=== PATIENT | female | born 1975 | race Asian ===

== ENCOUNTER 2024-03-15 16:11 | Emergency (ER) | payer OTHER, SELFPAY ==
--- NOTE | ~2024-03-15 | CT_ITS ---
CLINICAL HISTORY: low abd pain; h o and bilat oophorectomy CT abdomen and pelvis with contrast Comparison: None Findings: Mild motion artifact present. No consolidation or effusion. The liver is enlarged. The liver appears normal in contour. The gallbladder and solid organs are otherwise within normal limits. No hydronephrosis or hydroureter. There appears to be a vague area of decreased enhancement at the right kidney on axial image number 36 of series 3. No bowel obstruction, pneumoperitoneum, or pneumatosis. Pelvic contents unremarkable. No bladder wall thickening. Normal appendix. No acute fracture visualized. IMPRESSION: 1. Vague area of decreased enhancement identified of the right kidney as described above, which may be seen in the setting of pyelonephritis. No hydronephrosis, hydroureter, or perinephric fat stranding identified. Clinical correlation is advised. No other CT evidence for an acute inflammatory process identified within the abdomen or pelvis. 2. Hepatomegaly. This document has been electronically signed by: Eagle Moser MD on 03/16/2024 01:11:06
[2024-03-15 16:18] VITALS: BP 129/71; PULSE 91; RESP 20; TEMP 36.6; O2SAT 98; BMI 43.5
--- NOTE | 2024-03-15 16:19 | ED_ITS ---
HPI - General Adult General Chief complaint: Abdominal Pain Stated complaint: Pelvic pain, hyperglycemia Time Seen by Provider: 03/15/24 23:27 Source: patient, family, RN notes reviewed and pulp press tender (Upper Sorbian, video pulp press tender) Limitations: language barrier History of Present Illness HPI narrative: 48-year-old female, who reports a history of hypertension , asthma, presents for evaluation of a 4 day history of lower abdominal pain. Patient states symptoms began gradually, as pressure in the lower abdomen, in the center, suprapubic region. It has thin and progressively worsened. She reports a fullness in her ?uterus?. She denies any history of similar symptoms. She denies any vaginal prolapse. Has been able to urinate without difficulty. She has not had any bowel or bladder incontinence. No constipation. She has tried Tylenol without any relief. She denies any fevers chills nausea or vomiting. She denies any vaginal discharge bleeding or spotting. 11 years ago as well as bilateral oophorectomy secondary to recurrent ovarian cysts. Otherwise been feeling well. No history of kidney stones. Related Data Previous Rx's ?Medication ?Instructions ?Recorded phenazopyridine 100 mg tablet 100 mg PO TID #6 tabs 03/16/24 (Pyridium) Allergies Allergy/AdvReac Type Severity Reaction Status Date / Time No Known Allergies Allergy Verified 03/15/24 16:22 Review of Systems 2 Constitutional: Constitutional: Denies chills, Denies fever(s) and Denies headache(s) Eyes: Eyes: Denies change in vision and Denies other (No redness.) ENT: Denies headache(s), Denies nasal congestion, Denies nasal discharge, Denies neck pain and Denies sore throat Cardiovascular: Cardiovascular: Denies chest pain, Denies palpitations, Denies dyspnea, Denies dyspnea on exertion and Denies orthopnea Respiratory: Respiratory: Denies cough, Denies dyspnea and Denies dyspnea on exertion Gastrointestinal: Gastrointestinal: Reports abdominal pain, Denies melena, Denies hematochezia, Denies diarrhea, Denies nausea and Denies vomiting Genitourinary: Genitourinary: Denies dysuria and Denies urinary urgency Musculoskeletal: Musculoskeletal: Denies back pain, Denies muscle weakness, Denies neck pain and Denies numbness Integumentary/Breasts: Skin/Breast: Denies rash Neurologic: Denies headache(s), Denies focal weakness and Denies numbness Psychiatric: Psychiatric: Denies depression Endocrine: Endocrine: Denies palpitations [facility] Social History Social History Smoked in Last 30 Days: No Use of substances other than those prescribed or required for medical reasons: No Advance Directives: No Advance Directives Information Provided: Yes Do you have a plan to hurt others: No Plan Patient : No Physical Exam ED Vital Signs: Vital Signs - 24 hr 03/15/24 16:18 03/15/24 21:12 Temperature 97.8 F 97.9 F Pulse Rate 91 89 Respiratory Rate 20 18 Blood Pressure 129/71 133/60 Pulse Oximetry 98 97 Oxygen Delivery Method Room Air Room Air BMI result Body Mass Index 43.5 Const Orientation/consciousness: patient oriented x3 Resp Auscultation: clear to auscultation bilaterally Cardio Rate: regular rate Rhythm: regular rhythm GI Other: Abdomen is soft with diffuse tenderness in the lower abdomen. No peritoneal sign. Moderate suprapubic tenderness. No CVAT. Neuro General: patient oriented x3 Course Course Course Narrative: This is a rapid medical exam performed by Taras Madrigal NP: Additional HPI, ROS, PE not included below will be deferred to primary provider. Patient is a 48-year-old female presenting to the ED with daughter who reports patient has been having suprapubic abdominal pain for 4 days. States glucose levels have also been elevated. Referred from urgent care. Plan: Labs, UA Reevaluation(s) Reevaluation #1: 12:20 a.m., March 16, 2024. CT completed at this time, awaiting official resolved. Bladder noted to be distended. However after CT, patient was able to urinate on her own without difficulty. Check bladder scan for postvoid residual. 12:40 a.m., postvoid residual is 112. 1:35 a.m. patient is resting comfortably at this time. CT results reviewed, no acute process. Clinical correlation does not correlate with pyelonephritis. Patient may have cystitis but no obvious infection given urinalysis results. Reviewed all labs and imaging and discussed with the patient with Dr. Delcid. Patient will be provided with urology referral in trial of Pyridium. Reviewed all discharge instructions. Incidental finding of mild LFT elevation as well as hepatomegaly. Patient will follow up with PCP evaluation. Patient and her daughter expressed understanding of all discharge instructions and have no further questions at this time Medications Administered Discontinued Medications Generic Name Dose Route Start Last Admin Trade Name Ran PRN Reason Stop Dose Admin Sodium Chloride 1,000 mls @ 999 mls/hr 03/15/24 23:45 03/16/24 00:19 Ns IV 03/16/24 00:45 999 mls/hr .Q1H1M JOSY Administration Iohexol 85 ml 03/16/24 00:06 03/16/24 00:06 Iohexol 350 Mg/Ml 100 Ml Infus..Btl IV 03/16/24 00:07 85 ml ONCE ONE Administration Morphine Sulfate 4 mg 03/15/24 23:50 03/16/24 00:19 Morphine Sulfate 4 Mg/Ml Cartridge IVPUSH 03/15/24 23:51 4 mg ONCE ONE Administration Protocol Ondansetron HCl 4 mg 03/15/24 23:50 03/16/24 00:19 Ondansetron Hcl 4 Mg/2 Ml Vial IVPUSH 03/15/24 23:51 4 mg ONCE ONE Administration Medical Decision Making Medical Decision Making [facility] Narrative: 48-year-old female with a history of asthma, hypertension, diabetes, with a 4 day history of suprapubic abdominal pain. Check CT of the abdomen and pelvis. Consideration for ultrasound however since the patient has had bilateral oophorectomy we will start with CT. Glucose is elevated as well as mild elevation in LFTs. Beta quant is negative. Urinalysis with glucose but otherwise unremarkable. Differential Diagnosis Differential Diagnoses: The differential diagnosis associated with the presentation includes Bowel obstruction Intra-abdominal mass UTI Pyelonephritis next breath since Appendicitis Malignancy Admission/Observation Consideration of admission/observation: Escalation of care including admission/observation considered Consideration for admission if clinically warranted. Lab Data [facility] Lab Attestation statement: I reviewed the patient's lab results. 03/15/24 17:47 03/15/24 17:47 Labs: Lab Results 03/15/24 Range/Units 17:47 WBC 9.1 (4.8-10.8) X10*3/uL RBC 4.58 (4.20-5.50) X10*6/uL Hgb 11.4 L (12.0-16.0) g/dl Hct 36.3 L (37.0-47.0) % MCV 79.3 L (80.0-98.0) fL MCH 24.9 L (27.0-33.0) pg MCHC 31.4 (31.0-35.0) g/dl RDW 16.2 H (11.0-16.0) % Plt Count 227 (160-400) X10*3/uL MPV 11.1 (9.4-12.3) fL Immature Gran % (Auto) 0.3 (0.0-0.4) % Neut % (Auto) 52.2 (45-73) % Lymph % (Auto) 40.6 H (20-40) % [place] % (Auto) 4.9 (2-11) % Eos % (Auto) 1.3 (0-4) % Baso % (Auto) 0.7 (0-2) % Lymph # (Auto) 3.7 (1.2-4.9) X10*3/uL [place] # (Auto) 0.4 (0.1-1.2) X10*3/uL Eos # (Auto) 0.1 (0.0-0.4) X10*3/uL Baso # (Auto) 0.1 (0.0-0.2) X10*3/uL Abs Immat Gran (auto) 0.03 (0.00-0.03) X10*3/uL Absolute Neuts (auto) 4.7 (2.0-8.3) x10*3/uL Absolute Nucleated RBC 0.000 (0.0-0.012) X10*3/uL Nucleated RBC % (auto) 0.0 (0.0-0.2) /100WBC Sodium 139 (135-145) mmol/L Potassium 4.3 (3.3-5.1) mmol/L Chloride 107 (96-108) mmol/L Carbon Dioxide 28 (22-29) mmol/L Anion Gap 8 L (12-20) BUN 8 L (9-16) mg/dL Creatinine 0.81 (0.5-1.4) mg/dL Estim Creat Clear Calc 96.1 Estimated GFR > 60 Random Glucose 295 H (60-115) mg/dL Calcium 8.8 (8.4-10.2) mg/dL Total Bilirubin 0.8 (0.0-1.0) mg/dL AST 43 H (5-31) U/L ALT 77 H (0-31) U/L Alkaline Phosphatase 127 H (39-117) U/L Total Protein 7.6 (6.5-8.0) g/dL Albumin 4.1 (3.5-5.0) g/dL Beta HCG, Quant < 2 mIU/mL Urine Color Yellow Urine Appearance Clear Urine pH 6.5 (5.0-9.0) Ur Specific [place] 1.015 (1.005-1.025) Urine Protein Negative (Neg-Trace) mg/dL Urine Glucose (UA) 250 H (Negative) mg/dL Urine Ketones Negative (Negative) mg/dL Urine Blood Trace H (Negative) Urine Nitrite Negative (Negative) Ur Leukocyte Esterase Negative (Negative) Urine RBC 0-2 (0-2) /HPF Urine WBC 0-5 (0-5) /HPF Ur Squamous Epith Cells 3-5 (0-2) /HPF Urine Bacteria Trace (None Seen) Hyaline Casts 0-2 (0-2) /LPF Radiology Impression Discussion of test interpretation with radiology: I have reviewed the radiologist's reading. Radiologist Impression: [place] [id number] CT Scan Report Signed Patient: Scott Hartley MR#: [id number] : 1975 Acct:[id number] Age/Sex: 48 / F ADM Date: 03/15/24 Loc: .ED Attending Dr: Ordering Physician: Malik Toussaint Date of Service: 03/15/24 Procedure(s): CT abdomen pelvis w IV con Accession Number(s): [id number] cc: Physician,Unknown ; Malik Toussaint~ Report Number: [id number]: Total DLP = 1029.00 mGy-cm CLINICAL HISTORY: low abd pain; h o and bilat oophorectomy CT abdomen and pelvis with contrast Comparison: None Findings: Mild motion artifact present. No consolidation or effusion. The liver is enlarged. The liver appears normal in contour. The gallbladder and solid organs are otherwise within normal limits. No hydronephrosis or hydroureter. There appears to be a vague area of decreased enhancement at the right kidney on axial image number 36 of series 3. No bowel obstruction, pneumoperitoneum, or pneumatosis. Pelvic contents unremarkable. No bladder wall thickening. Normal appendix. No acute fracture visualized. IMPRESSION: 1. Vague area of decreased enhancement identified of the right kidney as described above, which may be seen in the setting of pyelonephritis. No hydronephrosis, hydroureter, or perinephric fat stranding identified. Clinical correlation is advised. No other CT evidence for an acute inflammatory process identified within the abdomen or pelvis. 2. Hepatomegaly. This document has been electronically signed by: Eagle Moser MD on 03/16/2024 01:11:06 Dictated By: Eagle Moser MD Signed By: <Electronically signed by Eagle Moser MD in OV> 03/16/24111 DD/ 0 TD/TT: 03/16/24110 Tester Equipment: Prescription Management I considered prescription management with: Pain Medication Chronic Conditions Patient?s care impacted by: Diabetes and Hypertension Discharge Plan Discharge Clinical Impression: Cystitis, Suprapubic fullness Abdominal pain Qualifiers: Abdominal location: lower abdomen, unspecified Qualified Code(s): R10.30 - Lower abdominal pain, unspecified Patient Disposition: Home, Self-Care Instructions: Abdominal Pain (ED), Interstitial Cystitis (ED) Additional Instructions: Pyridium as instructed to help with discomfort. This will turn your urine orange. Ibuprofen as directed for pain, available over the counter. Some of your liver tests were mildly elevated. These should be rechecked by your primary care provider. Avoid medications such as Tylenol or containing acetaminophen. Follow up with Urology referral, call Monday morning to schedule appointment. Follow-up with your primary care provider. Call this week to schedule a follow- up appointment. Return to the emergency department if you have any worsening of symptoms, or any concerns. Get well soon! Prescriptions: New phenazopyridine [Pyridium] 100 mg tablet 100 mg PO TID Qty: 6 0RF Referrals: Norma Solorzano MD [Physician] - 1 week (cystitis) Print Language: Upper Sorbian
[2024-03-15 17:52] LABS: MANUAL DIFF FLAG NO
[2024-03-15 17:54] LABS: Basophils Absolute Auto 0.1 X10*3/uL (0.0-0.2); Basophils Percent Auto 0.7 % (0-2); Eosinophils Absolute Auto 0.1 X10*3/uL (0.0-0.4); Eosinophils Percent Auto 1.3 % (0-4); Hematocrit 36.3 % (37.0-47.0); Hemoglobin 11.4 g/dl (12.0-16.0); Imm Gran Abs Auto 0.03 X10*3/uL (0.00-0.03); Imm Gran Pct Auto 0.3 % (0.0-0.4); Lymphocytes Absolute Auto 3.7 X10*3/uL (1.2-4.9); Lymphocytes Percent Auto 40.6 % (20-40); Mean Corpuscular HGB Conc 31.4 g/dl (31.0-35.0); Mean Corpuscular Hemoglobin 24.9 pg (27.0-33.0); Mean Corpuscular Volume 79.3 fL (80.0-98.0); Mean Platelet Volume 11.1 fL (9.4-12.3); Monocytes Absolute Auto 0.4 X10*3/uL (0.1-1.2); Monocytes Percent Auto 4.9 % (2-11); Neutrophils Absolute Auto 4.7 x10*3/uL (2.0-8.3); Neutrophils Percent Auto 52.2 % (45-73); Platelet Count 227 X10*3/uL (160-400); Red Blood Count 4.58 X10*6/uL (4.20-5.50); Red Cell Distribution Width 16.2 % (11.0-16.0); White Blood Count 9.1 X10*3/uL (4.8-10.8)
[2024-03-15 18:01] LABS: Appearance Urine Clear; Color Urine Yellow; Glucose Urine UA 250 mg/dL (Negative); Leukocyte Esterase Urine Negative (Negative); Nitrite Urine Negative (Negative); PH 6.5 (5.0-9.0); Specific Gravity - Urine 1.015 (1.005-1.025); UMIC TRIGGER UACC YES; Urine Blood Trace (Negative); Urine Ketones Negative (Negative); Urine Protein Negative (Neg-Trace)
[2024-03-15 18:06] LABS: Bacteria Urine Trace (None Seen); Hyaline Casts Urine 0-2 /LPF (0-2); RBC Urine 0-2 /HPF (0-2); WBC Urine 0-5 /HPF (0-5)
[2024-03-15 18:22] LABS: Alanine Aminotransferase 77 U/L (0-31); Albumin Level 4.1 g/dL (3.5-5.0); Alkaline Phosphatase 127 U/L (39-117); Anion Gap 8 (12-20); Aspartate Amino Transferase 43 U/L (5-31); Bilirubin Total 0.8 mg/dL (0.0-1.0); Blood Urea Nitrogen 8 mg/dL (9-16); Calcium 8.8 mg/dL (8.4-10.2); Carbon Dioxide 28 mmol/L (22-29); Chloride 107 mmol/L (96-108); Creatinine Clr Calc Pharmacy 96.1; Estimated Glomerular Filt Rate > 60; Glucose Random 295 mg/dL (60-115); Potassium 4.3 mmol/L (3.3-5.1); Sodium 139 mmol/L (135-145); Total Protein 7.6 g/dL (6.5-8.0)
[2024-03-15 18:26] LABS: HCG Quantitative < 2 mIU/mL
[2024-03-15 21:12] VITALS: BP 133/60; PULSE 89; RESP 18; TEMP 36.6; O2SAT 97
[2024-03-16] MEDS: iohexoL 350 MG/ML 100 ML INFUS..BTL 85 ML IV (00:06)
[2024-03-16] MEDS: Morphine Sulfate 4 MG/ML CARTRIDGE IVPUSH (00:19)
[2024-03-16] MEDS: ondansetron HCL 4 MG/2 ML VIAL IVPUSH (00:19)
[2024-03-16] MEDS: 0.9 % Sodium Chloride 1,000 ML 999 ML IV (00:19)
[2024-03-16 02:02] VITALS: BP 121/71; PULSE 92; RESP 18; TEMP 36.4; O2SAT 97
[2024-03-16] MEDS: Phenazopyridine HCL 200 MG TABLET PO (02:04)
[2024-03-16 02:12] VITALS: BP 121/71; PULSE 92; RESP 18; TEMP 36.4; O2SAT 97
== END 2024-03-16 02:23 | disposition home or self-care (01) ==
PROVIDERS: Registered Nurse Emergency; Emergency Provider Emergency Medicine
DX: R10.30 Lower abdominal pain, unspecified (principal); E11.9 Type 2 diabetes mellitus without complications; I10 Essential (primary) hypertension
CPT/HCPCS: 36415; 74177; 80053; 81001; 84702; 85025; 96361; 96374; 96375; 99284; J2270; J2405; Q9967

== ENCOUNTER → 2024-03-15 23:43 | Outpatient (BNV) | payer OTHER, SELFPAY | PROVIDERS: Emergency Provider Emergency Medicine; Visit Provider Radiology Diagnostic Radiology | DX: R10.2 Pelvic and perineal pain (principal) | CPT/HCPCS: 74177 ==

== ENCOUNTER 2024-05-15 11:05 | Outpatient (AMB) | payer OTHER, SELFPAY ==
--- NOTE | 2024-05-15 11:11 | A.OFFVIS_ITS ---
Intake Visit Reasons: Cystitis Intake Note: New Patient presents for initial visit for cystitis Urology Medications: none Blood Thinner: none PVR: 0ml's High Lift Operator Required: Yes High Lift Operator Services: High Lift Operator Present High Lift Operator Name: [id number] Accompanied by: Unknown Allergies No Known Allergies Allergy (Verified 05/15/24 11:48) Medication List - Last Reconciled 05/15/24 by LORENZO Bell atorvastatin 10 mg PO DAILY dulaglutide (Trulicity) mg subcut ibuprofen 600 mg PO Q8H PRN insulin glargine (Lantus Solostar U-100 Insulin) units subcut lisinopril 10 mg PO DAILY metformin ER 1,000 mg PO BID phenazopyridine (Pyridium) 100 mg PO TID trazodone 100 mg PO BEDTIME HPI Comments Details: Scott is a very pleasant 48-year-old Bengali speaking patient. She has a past medical history of hyperlipidemia and diabetes. She presents to the office today as a new patient for lower abdominal pain she had been experiencing. In discussion with the patient today she reports having seeked emergency room care earlier this year for lower abdominal pain fullness to uterus she had been experiencing at which time recommendations were made for urology referral for further assessment evaluation. In review of patient's chart it appears CT of the abdomen was ordered and performed. These results were communicated and reviewed with the patient today. 04/06 vague area of decreased enhancement identified of the right kidney which may be seen in the setting of pyeloneph ritis. No hydronephrosis, hydroureter, or perinephric fat stranding identified. Clinical correlation is advised. No other CT evidence of an acute inflammatory process identified within the abdomen or pelvis. Patient reports pain she had been experiencing has since subsided. In office urinalysis results reviewed with the patient today trace microscopic hematuria noted otherwise within normal li mits. When asked she denies any previous history of nicotine dependence and or workplace chemical exposure. PVR 0 mL. She denies urinary urgency, urinary frequency, incontinence, nocturia, hematuria, dysuria, foul smelling urine, changes to urinary stream, flank pain, fever, and or chills. She is happy with her current voiding parameters. We discussed at length potential causes of microscopic hematuria as well as lower abdominal pain she had been experiencing. We discussed obtaining repeat imaging for surveillance monitoring. We also discussed following up with oil well service operator helper as patient feels symptoms she had been feeling were more related to oil well service operator helper. She otherwise offers no other issues or concerns at this time. Review of Systems Const All systems reviewed & are unremarkable except as noted in HPI and below Physical Exam Const General: cooperative, healthy appearing, comfortable, no acute distress, well developed, alert and awake Nutritional Appearance: overweight Orientation/consciousness: patient oriented x3 Limitations: ambulation with cane HEENT Head: Yes normal to inspection, Yes normocephalic and Yes atraumatic Ears: hearing grossly normal bilaterally Eyes General: appearance normal, both eyes and all related structures Neck Neck: Yes normal visual inspection and Yes trachea midline Chest Chest palpation & inspection: normal inspection of the chest Resp Effort & Inspection: normal respiratory effort and able to speak in complete sentences Cardio Rate: regular rate GI Inspection: Yes normal to inspection General: Yes no CVA tenderness Back/Spine/Pelvis Back: no CVA tenderness Skin General skin exam: no rashes or lesions noted Neuro General: patient oriented x3 Extrem General: Yes normal to inspection Psych Appearance: grossly normal and well kempt Mental Status: mental status grossly normal Speech and movement: Normal speech and movement present and Clear speech present Affect: normal affect Attitude: cooperative Thought process: Normal thought process present Thought content: Normal thought content present Insight: Fair insight present (Psych) Judgement: Fair judgement present (Psych) Office Procedures Post Void Residual Post Residual Void Post Void Residual (PVR): 0 30354-[id number] Void Residual by ultrasound Results AMB Urinalysis, Automated UA Leukoctes 0 Irma/uL Last Edit by Disha Serrnao on 05/15/24 12:01 UA Nitrite Last Edit by Disha Serrano on 05/15/24 12:01 UA Urobilinogen 0.2 mg/dL Last Edit by Disha Serrano on 05/15/24 12:01 UA Protein 30 mg/dL Last Edit by Disha Serrano on 05/15/24 12:01 UA pH 6.0 Last Edit by Disha Serrano on 05/15/24 12:01 UA Blood 10 Stepan/uL Last Edit by Disha Serrano on 05/15/24 12:01 UA Specific [place] 1.015 Last Edit by Disha Serrano on 05/15/24 12:01 UA Ketone Last Edit by Disha Serrano on 05/15/24 12:01 UA Bilirubin 0 mg/dL Last Edit by Disha Serrano on 05/15/24 12:01 UA Glucose 0 mg/dL Last Edit by Disha Serrano on 05/15/24 12:01 Results Reviewed Results Reviewed: Laboratory Last Values Urine pH (Auto) 6.0 05/15/24 11:59 Specific [place] (Auto) 1.015 05/15/24 11:59 Urine Protein (Auto) 30 mg/dL 05/15/24 11:59 Glucose (UA)(Auto) 0 mg/dL 05/15/24 11:59 Urine Blood (Auto) 10 Stepan/uL 05/15/24 11:59 Urine Bilirubin (Auto) 0 mg/dL 05/15/24 11:59 Urine Urobilinogen (Auto) 0.2 mg/dL 05/15/24 11:59 Leukocyte Esterase (Auto) 0 Irma/uL 05/15/24 11:59 Date of Service: 03/15/24 CT abdomen and pelvis with contrast Comparison: None Findings: Mild motion artifact present. No consolidation or effusion. The liver is enlarged. The liver appears normal in contour. The gallbladder and solid organs are otherwise within normal limits. No hydronephrosis or hydroureter. There appears to be a vague area of decreased enhancement at the right kidney on axial image number 36 of series 3. No bowel obstruction, pneumoperitoneum, or pneumatosis. Pelvic contents unremarkable. No bladder wall thickening. Normal appendix. No acute fracture visualized. IMPRESSION: 1. Vague area of decreased enhancement identified of the right kidney as described above, which may be seen in the setting of pyelonephritis. No hydronephrosis, hydroureter, or perinephric fat stranding identified. Clinical correlation is advised. No other CT evidence for an acute inflammatory process identified within the abdomen or pelvis. 2. Hepatomegaly. Assessment & Plan Assessment & Plan (1) Microscopic hematuria: Code(s): R31.29 - Other microscopic hematuria Category: Medical (2) Lower abdominal pain: Code(s): R10.30 - Lower abdominal pain, unspecified Category: Medical Plan In office urinalysis results reviewed with the patient today; as noted above. PVR [address] results reviewed with the patient today; as noted above. We discussed potential causes of microscopic hematuria as well as further workup in risks and benefits of these interventions. Patient currently denies any bothersome urinary issues or concerns. She reports be happy with current voiding parameters. We discussed importance of hydration relation to overall health and well-being. We discussed importance of management and diabetes for improvement in overall health and well-being. Will obtain retroperitoneal ultrasound Follow-up in 3 months with imaging to be completed prior PVR at next office visit or sooner with any issues, concerns, and or questions. Orders: Orders AMB Urinalysis Automated Today Z13.9 - Encounter for screening, unspecified AMB Post Void Residual by ultrasound Today N39.41 - Urge incontinence Urine Cytology Today Z13.9 - Encounter for screening, unspecified US retroperitoneal comp 2 Months R31.29 - Other microscopic hematuria Patient Instructions: The patient had an opportunity to ask questions regarding the treatment plan. All questions were answered. Physical exam, labs, and imaging were discussed and reviewed in detail. As well as risks, benefits, and discussion of treatment choices. No major barriers to understanding were identified. The patient expressed understanding and agreement with the above treatment plan. The patient was made aware they should contact our office by phone for worsening of their current condition, the appearance of new symptoms, or with any questions or concerns. Compliance is encouraged with any medications and follow up testing that is ordered. It is a privilege to be allowed the opportunity to participate in? your urological care.? Again, if you have any questions or concerns If you have any questions or concerns please do not hesitate to contact me. The office is [phone]. This note is constructed using voice recognition software. While every effort has been made to ensure accuracy cut in station operator errors may have been included. Yours sincerely, LORENZO Bell Coding Level of Care Code New Pt Level 4 (40340) Diagnoses Microscopic hematuria R31.29 Lower abdominal pain R10.30 CPT Codes Post Residual Void - PVR CPT Code: 23158-Ywev Void Residual by ultrasound ([id number]) Time Spent (min) 35
--- OUTSIDE RECORDS SUMMARY | 2024-05-15 13:23 | XMS_ITS | Continuity of Care Document ---
Author Organization [facility] Address [address] [place] [address]- Care Team Providers Care Iron Pourer Name Role Phone Carlton GANDHI, Tri Burgess Primary Care Physician [place] [facility] [place] - 04/26/24 [facility] [address] [place] [address]- Encounter Type: Triage Allergies, Adverse Reactions, Alerts Substance Criticality Severity Reaction Reaction Severity Status Jardiance recurrent vaginal candidiasis Active Immunizations Given and Recorded Vaccine Date Status Refusal Reason Measles/Mumps/Rubella Virus Vaccine 1 06/05/15 Rec orded Measles/Mumps/Rubella Virus Vaccine 2 09/24/14 Rec orded Hepatitis B Vaccine (old term) 3 06/05/15 Recorded Hepatitis B Vaccine (old term) 4 12/10/14 Recorded Hepatitis B Vaccine (old term) 5 10/27/14 Recorded tetanus/diphtheria/pertussis, acel(Tdap) 6 10/27/14 Recorded tetanus/diphtheria/pertussis, acel(Tdap) 7 09/24/14 Recorded 1Result Comment: Unit: Unknown Route: Subcutaneous Road Test Examiner: Merck and [employer]. 2Result Comment: Unit: Unknown Route: Subcutaneous Road Test Examiner: Merck and [employer]. 3Result Comment: Unit: Unknown Route: Intramuscular Road Test Examiner: Merck, Sharp, Dohme 4Result Comment: Unit: Unknown Route: Intramuscular Road Test Examiner: Merck and Co. 5Result Comment: Unit: Unknown Route: Intramuscular Road Test Examiner: GlaxoSmithKline 6Result Comment: Unit: Unknown Route: Intramuscular Road Test Examiner: Sanofi Pasteur 7Result Comment: Unit: Unknown Route: Intramuscular Road Test Examiner: [employer] Medications Advair Diskus 500 mcg-50 mcg inhalation powder 1, inhalation, Inhalation, 2 times a day, Rinse mouth and throat after use. use for prevention of shortness of breath., # 3 each, Refills 1, Tot. Refills 1, Maintenance, 01/06/23 11:29:00 AM EDT, Inhaler, Route to Pharmacy Electronically, [id number], [id number], Label in [place], 158, cm, 01/06/23 10:37:00 EDT, Height, 108, kg, 09/16/22 17:43:00 EDT, Dry Weight Start Date: 01/06/23 Stop Date: 07/05/23 Status: Ordered Quantity: 3.0 Unit: each Repeat number: 2 Indication: Unspecified asthma, uncomplicated atorvastatin 10 mg oral tablet 1 tablet = 10 mg, By Mouth, Daily, Take for cholesterol and diabetes management., # 90 tablet, 0 Refills, Maintenance, 11/07/23 3:12:00 PM EDT, [facility], Label in [place]., 158, cm, 09/11/23 15:00:00 EDT, Height, 108, kg, 09/16/22 17:43:00 EDT, Dry Weight Start Date: 11/07/23 Stop Date: 02/05/24 Status: Ordered Quantity: 90.0 Unit: tablet Repeat number: 1 Indication: Type 2 diabetes mellitus without complications BD STEPHEN 2 GEN PEN NDL 32G 4MM BD STEPHEN 2 GEN PEN NDL 32G 4MM, See Instructions, # 90 Unknown, 1 Refills, Maintenance, 1 X DAILY USE DIRECTED FOR TYPE 2 DIABETES MELLITUS, 04/15/24 10:39:00 AM EST, 158, cm, 03/20/24 13:07:00 EST, Height, 110, kg, 03/14/24 17:34:00 EST, Dry Weight Start Date: 04/15/24 Status: Ordered Quantity: 90.0 Unit: Unknown Repeat number: 1 capsaicin 0.025% topical lotion 1 application, Topically, 4 times a day, Apply to painful areas up to four times per day. Avoid contact with face and eyes., # 60 mL, 2 Refills, Maintenance, 05/04/22 12:47:00 PM EST, Lotion, [facility], Label in [place]., 155, cm, 05/04/22 10:40:00 EST, Height, 50, kg, 03/20/22 1:24:00 EST, Dry Weight Start Date: 05/04/22 Status: Ordered Quantity: 60.0 Unit: mL Repeat number: 3 Indication: Pain in unspecified joint clotrimazole 1% topical cream 1 application, Topically, 2 times a day, # 100 Gm, 11 Refills, Maintenance, 09/11/23 3:39:00 PM EDT, Cream, [facility], Partial fill upon patient request if the prescription is for a schedule II opioid drug., 1 application Topically 2 times a day, 158, cm, 09/11/23 15:00:00 EDT, Height, 108, kg, 09/16/22 17:43:00 EDT, Dry Weight Start Date: 09/11/23 Status: Ordered Quantity: 100.0 Unit: g Repeat number: 12 diclofenac 1% topical gel = 2 Gm, Topically, 4 times a day, PRN NEEDED FOR PAIN, # 300 Gm, 1 Refills, Maintenance, 03/15/23 6:47:00 AM EST, [id number], 30, APPLY 2 GRAMS 4 TIMES A DAY NEEDED FOR PAIN, 158, cm, 01/06/23 10:37:00 EDT, Height, 108, kg, 09/16/22 17:43:00 EDT, Dry Weight Start Date: 03/15/23 Status: Ordered Quantity: 300.0 Unit: g Repeat number: 1 diclofenac potassium 50 mg oral tablet 1 tablet = 50 mg, By Mouth, 2 times a day, PRN for pain, for 30 days, Please disregard prior scriptfor Ibuprofen. Diclofenac to replace Ibuprofen, # 60 tablet, 5 Refills, Acute 10/13/24 4:29:00 PM EDT, 04/16/24 4:29:00 PM EST, Tablet, [facility], Partial fill upon patient request if the prescription is for a schedule II opioid drug., 158, cm, 04/16/24 15:39:00 EST, Height, 110, kg, 03/14/24 17:34:00 EST, Dry Weight Start Date: 04/16/24 Stop Date: 10/13/24 Status: Ordered Quantity: 60.0 Unit: tablet Repeat number: 6 duloxetine 20 mg oral enteric coated capsule 1 capsule = 20 mg, By Mouth, 2 times a day, Take for management of pain and depression. Do not crush or chew., # 60 capsule, 5 Refills, Maintenance, 09/11/23 3:40:00 PM EDT, EC Capsule, [facility], Label in [place]., 158, cm, 09/11/23 15:00:00 EDT, Height, 108, kg, 09/16/22 17:43:00 EDT, Dry Weight Start Date: 09/11/23 Stop Date: 03/09/24 Status: Ordered Quantity: 60.0 Unit: capsule Repeat number: 6 Indication: Encounter for general adult medical examination without abnormal findings famotidine 40 mg oral tablet 1 tablet, By Mouth, 2 times a day, # 180 tablet, 0 Refills, Maintenance, 12/12/23 11:03:00 AM EDT, [facility], 158, cm, 12/07/23 14:22:00 EDT, Height, 108, kg, 09/16/22 17:43:00 EDT, Dry Weight Start Date: 12/12/23 Status: Ordered Quantity: 180.0 Unit: tablet Repeat number: 1 fluconazole 150 mg oral tablet 1 tablet = 150 mg, By Mouth, Once, epeat dose if still having symptoms in 72 hours, # 2 tablet, 0 Refills, Soft Stop, 04/18/24 1:57:00 PM EST, Tablet, [facility], Partial fill upon patient request if the prescription is for a schedule II opioid drug., 158, cm, 04/18/24 13:42:00 EST, Height, 110, kg, 03/14/24 17:34:00 EST, Dry Weight Start Date: 04/18/24 Status: Ordered Quantity: 2.0 Unit: tablet Repeat number: 1 FreeStyle Hazel 2 Sensors See Instructions, # 6 each, Refills 1, Tot. Refills 1, Maintenance, ICD10: E11.9 To use to monitor blood sugars at least twice daily, change every 14 days, 11/09/22 7:28:00 AM EDT, Supply, 158, cm, 09/16/22 17:43:00 EDT, Height, 108, kg, 09/16/22 17:43:00 EDT, Dry Weight Start Date: 11/09/22 Status: Ordered Quantity: 6.0 Unit: each Repeat number: 2 Freestyle Lite Lancets See Instructions, # 100 each, Refills 5, Tot. Refills 5, Maintenance, Use as directed one time daily for monitoring of blood sugar. Use as needed for symptoms hypoglycemia and hyperglycemia Dx: E11.9duration: Lifetime, 04/16/24 4:22:00 PM EST, Supply, 158, cm, 04/16/24 15:39:00 EST, Height, 110, kg,03/14/24 17:34:00 EST, Dry Weight Start Date: 04/16/24 Status: Ordered Quantity: 100.0 Unit: each Repeat number: 6 Freestyle Lite Test Strips See Instructions, # 100 each, Refills 5, Tot. Refills 5, Maintenance, Use as directed one time daily for monitoring of blood sugar. Use as needed for symptoms hypoglycemia and hyperglycemia Dx: E11.9Duration: Lifetime, 04/16/24 4:22:00 PM EST, Supply, 158, cm, 04/16/24 15:39:00 EST, Height, 110, kg,03/14/24 17:34:00 EST, Dry Weight Start Date: 04/16/24 Status: Ordered Quantity: 100.0 Unit: each Repeat number: 6 gabapentin 300 mg oral capsule 300 mg, 1, capsule, By Mouth, 3 times a day, # 270 capsule, Refills 3, Tot. Refills 3, Maintenance,09/11/23 3:36:00 PM EDT, Route to Pharmacy Electronically, [facility]acy #1972, Partial fill upon patient request if the prescription is for a schedule II opioid drug., 158, cm, 09/11/23 15:00:00 EDT, Height, 108, kg, 09/16/22 17:43:00 EDT, Dry Weight Start Date: 09/11/23 Status: Ordered Quantity: 270.0 Unit: capsule Repeat number: 4 Lantus Solostar Pen 100 units/mL subcutaneous solution See Instructions, INJECT 35 UNITS SUBCUTANEOUSLY DAILY AT BEDTIME,X30 DAYS, # 15 Unknown, 11 Refills, Maintenance, 04/08/24 9:33:00 AM EST, [facility] ST[id number], 158, cm, 03/20/24 13:07:00 EST, Height, 110, kg, 03/14/24 17:34:00 EST, Dry Weight Start Date: 04/08/24 Status: Ordered Quantity: 15.0 Unit: Unknown Repeat number: 1 lisinopril 10 mg oral tablet 10 mg, 1, tablet, By Mouth, Daily, Take for management of blood pressure., # 90 tablet, Refills 3, Tot. Refills 3, Maintenance, 04/04/23 2:20:00 PM EST, Route to Pharmacy Electronically, [facility]/pharmacy #1972, Label in Kazakh., 158, cm, 04/04/23 13:58:00 EST, Height, 108, kg, 09/16/22 17:43:00 EDT, DryWeight Start Date: 04/04/23 Stop Date: 03/29/24 Status: Ordered Quantity: 90.0 Unit: tablet Repeat number: 4 MetFORMIN (Eqv-Glucophage XR) 500 mg oral tablet, extended release 2 tablet, By Mouth, 2 times a day, # 360 tablet, 2 Refills, Maintenance, 02/19/24 2:58:00 PM EST, [facility] STORE [id number], 154, cm, 12/22/23 14:25:00 EDT, Height, 108, kg, 12/14/23 15:18:00 EDT, Dry Weight Start Date: 02/19/24 Status: Ordered Quantity: 360.0 Unit: tablet Repeat number: 1 mupirocin 2% topical ointment 22 Gm, APPLY TO THE AREA OF THE RASH ON YOUR BREAST., 0 Refills, 05/04/22 11:21:00 AM EST, Partial fill upon patient request if the prescription is for a schedule II opioid drug. Start Date: 05/04/22 Status: Ordered Repeat number: 1 Pen [place], 31 G x 5 mm BD Ultra Fine III See Instructions, # 100 each, Refills 5, Tot. Refills 5, Maintenance, Use as directed to adminiser insulin dx. e11.9 duration:lifetime, 03/30/23 1:39:00 PM EST, Supply, 158, cm, 01/06/23 10:37:00 EDT,Height, 108, kg, 09/16/22 17:43:00 EDT, Dry Weight Start Date: 03/30/23 Status: Ordered Quantity: 100.0 Unit: each Repeat number: 6 Pen [place], 32 G x 4 mm BD Ultra Fine III See instructions, # 200 each, Refills 5, Tot. Refills 5, Maintenance, 1 x daily use as directed forType 2 Diabetes Mellitus, 04/16/24 4:23:00 PM EST, Supply, 158, cm, 04/16/24 15:39:00 EST, Height, 110, kg, 03/14/24 17:34:00 EST, Dry Weight Start Date: 04/16/24 Stop Date: 10/13/24 Status: Ordered Quantity: 200.0 Unit: each Repeat number: 6 sucralfate 1 gm oral tablet 1 Gm, 1, tablet, By Mouth, 4 times a day, on an empty stomach vietnamese label please, # 120 tablet, Refills 1, Tot. Refills 1, Maintenance, 09/11/23 4:06:00 PM EDT, Route to Pharmacy Electronically, [facility]/pharmacy #1972, Partial fill upon patient request if the prescription is for a schedule II opioid drug., 158, cm, 09/11/23 15:00:00 EDT, Height, 108, kg, 09/16/22 17:43:00 EDT, Dry Weight Start Date: 09/11/23 Status: Ordered Quantity: 120.0 Unit: tablet Repeat number: 2 traZODone 100 mg oral tablet 1, tablet, By Mouth, Daily at bedtime, PRN, SLEEP., # 90 tablet, Refills 1, Maintenance, NEEDED,02/19/24 2:58:00 PM EST, Route to Pharmacy Electronically, [facility] STORE [id number], 154, cm, 12/22/23 14:25:00 EDT, Height, 108, kg, 12/14/23 15:18:00 EDT, Dry Weight Start Date: 02/19/24 Status: Ordered Quantity: 90.0 Unit: tablet Repeat number: 1 Trulicity Pen 1.5 mg/0.5 mL subcutaneous solution = 1.5 mg, Subcutaneous Injection, Every week, rotate injection sites, # 1 each, 5 Refills, Maintenance, 12/22/23 2:52:00 PM EDT, Solution, [facility]/pharmacy #1972, Partial fill upon patient request if theprescription is for a schedule II opioid drug., 154, cm, 12/22/23 14:25:00 EDT, Height, 108, kg, 12/14/23 15:18:00 EDT, Dry Weight Start Date: 12/22/23 Stop Date: 06/07/24 Status: Ordered Quantity: 1.0 Unit: each Repeat number: 6 Tylenol Extra Strength 500 mg oral tablet 1 tablet = 500 mg, By Mouth, Every 4 hours, PRN for pain, # 60 tablet, 0 Refills, Maintenance, 11/16/22 11:55:00 AM EDT, Tablet, [facility], Partial fill upon patient request if the prescription is for a schedule II opioid drug., 158, cm, 11/16/22 11:38:00 EDT, Height, 108, kg, 09/16/22 17:43:00 EDT, Dry Weight Start Date: 11/16/22 Status: Ordered Quantity: 60.0 Unit: tablet Repeat number: 1 Ventolin HFA 108 mcg/inh inhalation aerosol with adapter 2 puffs, Inhalation, Every 6 hours, PRN NEEDED, WHEEZING/SHORTNESS OF BREATH., # 18 each, 5 Refills, Maintenance, 05/02/23 7:12:00 AM EST, [id number], 158, cm, 04/04/23 13:58:00 EST, Height, 108, kg, 09/16/22 17:43:00 EDT, Dry Weight Start Date: 05/02/23 Stop Date: 06/01/23 Status: Ordered Quantity: 18.0 Unit: each Repeat number: 1 Zepbound Pen 5 mg/0.5 mL subcutaneous solution = 5 mg, Subcutaneous Injection, Every week, rotate injection sites, # 1 kit, 3 Refills, Maintenance, 04/16/24 4:19:00 PM EST, Solution, [facility], Partial fill upon patient request if the prescription is for a schedule II opioid drug., 158, cm, 04/16/24 15:39:00 EST, Height, 110, kg, 03/14/24 17:34:00 EST, Dry Weight Start Date: 04/16/24 Stop Date: 08/06/24 Status: Ordered Quantity: 1.0 Unit: kit Repeat number: 4 Problem List Condition Confirmation Course Effective Dates Status H ealth Status Informant Asthma Confirmed Active Carpal tunnel syndrome of right wrist Confirmed 09/24/14 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 Monitored by the [facility] Nurse. 4CT chest 2023 [facility] Social History Social History Type Response Smoking Status Type: Cigarettes;[place] smoker entered on: 01/27/15 Sex Sex Representation Female (finding) Patient Care team information Care Team Personnel Name: Tri Vincent MD Position: [facility] Physician - Primary Care Member Role: PCP Address: [address] [place] [address]- Telecom: Care Team Related Persons Name: MEGAN MINER Insurance Providers Guarantor name: LORENZO ESPINAL Health Plan Information #: 1 Payer: [employer] Member Number: NA Policy Number: NA Group Number: NA
--- OUTSIDE RECORDS SUMMARY | 2024-05-15 13:23 | XMS_ITS | Continuity of Care Document ---
Author Organization [facility] Address [address] [place] [address]- Care Team Providers Care Service Planner Name Role Phone Carlton GANDHI, Tri Burgess Primary Care Physician Encounter [facility] Date(s): 03/22/24 - 04/21/24 [facility] [address] [place] [address]- Encounter Type: Triage Allergies, Adverse Reactions, Alerts [...] Recorded 1Result Comment: Unit: Unknown Route: Subcutaneous Metal Extrusion Supervisor: [employer] 2Result Comment: Unit: Unknown Route: Subcutaneous Metal Extrusion Supervisor: [employer] 3Result Comment: Unit: Unknown Route: Intramuscular Metal Extrusion Supervisor: Merck, Sharp, Dohme 4Result Comment: Unit: Unknown Route: Intramuscular Metal Extrusion Supervisor: [employer]. 5Result Comment: Unit: Unknown Route: Intramuscular Metal Extrusion Supervisor: GlaxoSmithKline 6Result Comment: Unit: Unknown Route: Intramuscular Metal Extrusion Supervisor: Sanofi Pasteur 7Result Comment: Unit: Unknown Route: Intramuscular Metal Extrusion Supervisor: GlaxoSmithKline Medications Advair Diskus 500 mcg-50 mcg inhalation powder 1, inhalation, Inhalation, 2 times a day, Rinse mouth and throat after use. use for prevention of shortness of breath., # 3 each, Refills 1, Tot. Refills 1, Maintenance, 01/06/23 11:29:00 AM EDT, Inhaler, Route to Pharmacy Electronically, [id number], [facility], Label in Spanish, 158, cm, 01/06/23 10:37:00 EDT, Height, 108, [...] 3:12:00 PM EDT, [facility], Label in Spanish., 158, cm, 09/11/23 15:00:00 EDT, Height, 108, [...] PM EST, Lotion, [facility], Label in Spanish., 155, cm, 05/04/22 10:40:00 EST, Height, 50, [...] 1 Refills, Maintenance, 03/15/23 6:47:00 AM EST, [id number], 30, APPLY 2 GRAMS 4 TIMES A [...] EDT, EC Capsule, [facility], Label in Spanish., 158, cm, 09/11/23 15:00:00 EDT, Height, 108, [...] 3:36:00 PM EDT, Route to Pharmacy Electronically, [facility]/pharmacy #1972, Partial fill upon patient request if [...] 11 Refills, Maintenance, 04/08/24 9:33:00 AM EST, [facility] ST[facility] [id number], 158, cm, 03/20/24 13:07:00 EST, Height, 110, kg, 03/14/24 17:34:00 EST, Dry Weight Start Date: 04/08/24 Status: Ordered Quantity: 15.0 Unit: Unknown Repeat number: 1 lisinopril 10 mg oral tablet 10 mg, 1, tablet, By Mouth, Daily, Take for management of blood pressure., # 90 tablet, Refills 3, Tot. Refills 3, Maintenance, 04/04/23 2:20:00 PM EST, Route to Pharmacy Electronically, [facility]/pharmacy #1972, Label in Spanish., 158, cm, 04/04/23 13:58:00 EST, Height, 108, kg, 09/16/22 17:43:00 EDT, DryWeight Start Date: 04/04/23 Stop Date: 03/29/24 Status: Ordered Quantity: 90.0 Unit: tablet Repeat number: 4 MetFORMIN (Eqv-Glucophage XR) 500 mg oral tablet, extended release 2 tablet, By Mouth, 2 times a day, # 360 tablet, 2 Refills, Maintenance, 02/19/24 2:58:00 PM EST, [id number], 154, cm, 12/22/23 14:25:00 EDT, Height, 108, [...] 05/04/22 Status: Ordered Repeat number: 1 Pen [place], 31 G x 5 mm BD Ultra Fine III See Instructions, # 100 each, Refills 5, Tot. Refills 5, Maintenance, Use as directed to adminiser insulin dx. e11.9 duration:lifetime, 03/30/23 1:39:00 PM EST, Supply, 158, cm, 01/06/23 10:37:00 EDT,Height, 108, kg, 09/16/22 17:43:00 EDT, Dry Weight Start Date: 03/30/23 Status: Ordered Quantity: 100.0 Unit: each Repeat number: 6 Pen [place], 32 G x 4 mm BD Ultra [...] times a day, on an empty stomach romansh label please, # 120 tablet, Refills 1, Tot. Refills 1, Maintenance, 09/11/23 4:06:00 PM EDT, Route to Pharmacy Electronically, [facility]/pharmacy #1972, Partial fill upon patient request if [...] 2:58:00 PM EST, Route to Pharmacy Electronically, [facility] STORE [id number], 154, cm, 12/22/23 14:25:00 EDT, Height, 108, kg, 12/14/23 15:18:00 EDT, Dry Weight Start Date: 02/19/24 Status: Ordered Quantity: 90.0 Unit: tablet Repeat number: 1 Trulicity Pen 1.5 mg/0.5 mL subcutaneous solution = 1.5 mg, Subcutaneous Injection, Every week, rotate injection sites, # 1 each, 5 Refills, Maintenance, 12/22/23 2:52:00 PM EDT, Solution, [facility]/pharmacy #1972, Partial fill upon patient request if [...] Refills, Maintenance, 11/16/22 11:55:00 AM EDT, Tablet, [facility]/pharmacy #1972, Partial fill upon patient request if [...] Maintenance, 05/02/23 7:12:00 AM EST, [id number], 158, cm, 04/04/23 13:58:00 EST, Height, 108, [...] Active Latent tuberculosis - treated 2014 with INH2022 TB team review Confirmed Active H. 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 Monitored by the [facility] [place]. 4CT chest 2023 [facility] Social History Social History Type Response Smoking Status Type: Cigarettes;[facility] er smoker entered on: 01/27/15 Sex Sex Representation Female (finding) Patient Care team information Care Team Personnel Name: Carlton GANDHI, Tri Burgess Position: [facility] Physician - Primary Care Member Role: PCP Address: [address] [place] [address] Telecom: Care Team Related Persons Name: MEGAN MINER Insurance Providers Guarantor name: LORENZO ESPINAL Health Plan Information #: 1 Payer: [employer] [place] Member Number: NA Policy Number: NA Group Number: NA
--- OUTSIDE RECORDS SUMMARY | 2024-05-15 13:23 | XMS_ITS | Continuity of Care Document ---
Author Organization [facility] Address [address] [place] [address]- Care Team Providers Care Bundle Collector Name Role Phone Carlton GANDHI, Tri Burgess Primary Care Physician [facility] Date[facility]): 03/15/24 - 04/14/24 [facility] [address] [place] [address]- Referring Physician: Rudy Quiros Encounter Type: Triage Allergies, Adverse Reactions, Alerts [...] Recorded 1Result Comment: Unit: Unknown Route: Subcutaneous Supervisor Instrument Mechanics: Merck [employer] 2Result Comment: Unit: Unknown Route: Subcutaneous Supervisor Instrument Mechanics: Merck [employer] 3Result Comment: Unit: Unknown Route: Intramuscular Supervisor Instrument Mechanics: Merck, Sharp, Dohme 4Result Comment: Unit: Unknown Route: Intramuscular Supervisor Instrument Mechanics: Merck and Co. 5Result Comment: Unit: Unknown Route: Intramuscular Supervisor Instrument Mechanics: GlaxoSmithKline 6Result Comment: Unit: Unknown Route: Intramuscular Supervisor Instrument Mechanics: Sanofi Pasteur 7Result Comment: Unit: Unknown Route: Intramuscular Supervisor Instrument Mechanics: GlaxoSmithKline Medications Advair Diskus 500 mcg-50 mcg inhalation powder 1, inhalation, Inhalation, 2 times a day, Rinse mouth and throat after use. use for prevention of shortness of breath., # 3 each, Refills 1, Tot. Refills 1, Maintenance, 01/06/23 11:29:00 AM EDT, Inhaler, Route to Pharmacy Electronically, [id number], [facility]/pharmacy #1972, Label in Khmer, 158, cm, 01/06/23 10:37:00 EDT, Height, 108, [...] 3:12:00 PM EDT, [facility], Label in Khmer., 158, cm, 09/11/23 15:00:00 EDT, Height, 108, kg, 09/16/22 17:43:00 EDT, Dry Weight Start Date: 11/07/23 Stop Date: 02/05/24 Status: Ordered Quantity: 90.0 Unit: tablet Repeat number: 1 Indication: Type 2 diabetes mellitus without complications capsaicin 0.025% topical lotion 1 application, Topically, 4 times a day, Apply to painful areas up to four times per day. Avoid contact with face and eyes., # 60 mL, 2 Refills, Maintenance, 05/04/22 12:47:00 PM EST, Lotion, [facility], Label in Khmer., 155, cm, 05/04/22 10:40:00 EST, Height, 50, kg, 03/20/22 1:24:00 EST, Dry Weight Start Date: 05/04/22 Status: Ordered Quantity: 60.0 Unit: mL Repeat number: 3 Indication: Pain in unspecified joint clotrimazole 1% topical cream 1 application, Topically, 2 times a day, # 100 Gm, 11 Refills, Maintenance, 09/11/23 3:39:00 PM EDT, Cream, [facility]/pharmacy #1972, Partial fill upon patient request if [...] 1 Refills, Maintenance, 03/15/23 6:47:00 AM EST, [facility] STORE [id number], 30, APPLY 2 GRAMS 4 TIMES A DAY NEEDED FOR PAIN, 158, cm, 01/06/23 10:37:00 EDT, Height, 108, kg, 09/16/22 17:43:00 EDT, Dry Weight Start Date: 03/15/23 Status: Ordered Quantity: 300.0 Unit: g Repeat number: 1 duloxetine 20 mg oral enteric coated capsule 1 capsule = 20 mg, By Mouth, 2 times a day, Take for management of pain and depression. Do not crush or chew., # 60 capsule, 5 Refills, Maintenance, 09/11/23 3:40:00 PM EDT, EC Capsule, [facility]/pharmacy #1972, Label in Khmer., 158, cm, 09/11/23 15:00:00 EDT, Height, 108, [...] Quantity: 180.0 Unit: tablet Repeat number: 1 FreeStyle Hazel [...] Lancets See Instructions, # 100 each, Refills 4, Tot. Refills 4, Maintenance, Use as directed one time daily for monitoring of blood sugar. Use as needed for symptoms hypoglycemia and hyperglycemia Dx: E11.9duration: Lifetime, 11/03/22 11:07:00 AM EDT, Supply, 158, cm, 09/16/22 17:43:00 EDT, Height, 108, kg, 09/16/22 17:43:00 EDT, Dry Weight Start Date: 11/03/22 Status: Ordered Quantity: 100.0 Unit: each Repeat number: 5 Freestyle Lite Test Strips See Instructions, # 100 each, Refills 4, Tot. Refills 4, Maintenance, Use as directed one time daily for monitoring of blood sugar. Use as needed for symptoms hypoglycemia and hyperglycemia Dx: E11.9Duration: Lifetime, 11/07/23 12:04:00 PM EDT, Supply, 158, cm, 09/11/23 15:00:00 EDT, Height, 108, kg, 09/16/22 17:43:00 EDT, Dry Weight Start Date: 11/07/23 Status: Ordered Quantity: 100.0 Unit: each Repeat number: 5 gabapentin 300 mg oral capsule 300 mg, 1, capsule, By Mouth, 3 times a day, # 270 capsule, Refills 3, Tot. Refills 3, Maintenance,09/11/23 3:36:00 PM EDT, Route to Pharmacy Electronically, [facility]/pharmacy #1972, Partial fill upon patient request if [...] 11 Refills, Maintenance, 04/08/24 9:33:00 AM EST, [id number], 158, cm, 03/20/24 13:07:00 EST, Height, 110, kg, 03/14/24 17:34:00 EST, Dry Weight Start Date: 04/08/24 Status: Ordered Quantity: 15.0 Unit: Unknown Repeat number: 1 lisinopril 10 mg oral tablet 10 mg, 1, tablet, By Mouth, Daily, Take for management of blood pressure., # 90 tablet, Refills 3, Tot. Refills 3, Maintenance, 04/04/23 2:20:00 PM EST, Route to Pharmacy Electronically, [facility]/pharmacy #1972, Label in Khmer., 158, cm, 04/04/23 13:58:00 EST, Height, 108, kg, 09/16/22 17:43:00 EDT, DryWeight Start Date: 04/04/23 Stop Date: 03/29/24 Status: Ordered Quantity: 90.0 Unit: tablet Repeat number: 4 MetFORMIN (Eqv-Glucophage XR) 500 mg oral tablet, extended release 2 tablet, By Mouth, 2 times a day, # 360 tablet, 2 Refills, Maintenance, 02/19/24 2:58:00 PM EST, [facility] STORE [id number], 154, cm, 12/22/23 14:25:00 EDT, Height, 108, [...] 05/04/22 Status: Ordered Repeat number: 1 Pen [place], 31 G x 5 mm BD Ultra Fine III See Instructions, # 100 each, Refills 5, Tot. Refills 5, Maintenance, Use as directed to adminiser insulin dx. e11.9 duration:lifetime, 03/30/23 1:39:00 PM EST, Supply, 158, cm, 01/06/23 10:37:00 EDT,Height, 108, kg, 09/16/22 17:43:00 EDT, Dry Weight Start Date: 03/30/23 Status: Ordered Quantity: 100.0 Unit: each Repeat number: 6 Pen [place], 32 G x 4 mm BD Ultra Fine III See instructions, # 200 each, Refills 5, Tot. Refills 5, Maintenance, 1 x daily use as directed forType 2 Diabetes Mellitus, 10/01/23 2:07:00 PM EDT, Supply, 158, cm, 04/04/23 13:58:00 EST, Height, 108, kg, 09/16/22 17:43:00 EDT, Dry Weight Start Date: 10/01/23 Stop Date: 03/29/24 Status: Ordered Quantity: 200.0 Unit: each Repeat number: 6 sucralfate 1 gm oral tablet 1 Gm, 1, tablet, By Mouth, 4 times a day, on an empty stomach amharic label please, # 120 tablet, Refills 1, Tot. Refills 1, Maintenance, 09/11/23 4:06:00 PM EDT, Route to Pharmacy Electronically, [facility]/pharmacy #1972, Partial fill upon patient request if [...] EST, Route to Pharmacy Electronically, [facility] STORE [id number], 154, cm, 12/22/23 14:25:00 EDT, Height, 108, kg, 12/14/23 15:18:00 EDT, Dry Weight Start Date: 02/19/24 Status: Ordered Quantity: 90.0 Unit: tablet Repeat number: 1 Trulicity Pen 1.5 mg/0.5 mL subcutaneous solution = 1.5 mg, Subcutaneous Injection, Every week, rotate injection sites, # 1 each, 5 Refills, Maintenance, 12/22/23 2:52:00 PM EDT, Solution, [facility], Partial fill upon patient [...] 5 Refills, Maintenance, 05/02/23 7:12:00 AM EST, [facility] STORE 11538, 158, cm, 04/04/23 13:58:00 EST, Height, 108, kg, 09/16/22 17:43:00 EDT, Dry Weight Start Date: 05/02/23 Stop Date: 06/01/23 Status: Ordered Quantity: 18.0 Unit: each Repeat number: 1 Problem List Condition Confirmation Course Effective Dates [...] Gynecology and Gastroenterology s of Confirmed Active Non-Mohawk speaking patient Confirmed Active Hepatomegaly on CT [place] 2 Confirmed Active Low back pain Confirmed 03/17/15 Active Microalbuminuria - minimal Confirmed 03/2023 Active Breast: multiple cysts of breast Confirmed Active 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 Monitored by the [facility] Nurse. 4CT chest 2023 [facility] Social History Social History Type Response Smoking Status Type: Cigarettes;[place] smoker entered on: 01/27/15 Sex Sex Representation Female (finding) Patient Care team information Care Team Personnel Name: Tri Vincent MD Position: [facility] Physician - Primary Care Member Role: PCP Address: [address] [place] [address] Telecom: Care Team Related Persons Name: MEGAN MINER Insurance Providers Guarantor name: ANGICandy TEDDY Health Plan Information #: 1 Payer: [facility] [facility] Member Number: NA Policy Number: NA Group Number: NA
--- OUTSIDE RECORDS SUMMARY | 2024-05-15 13:23 | XMS_ITS | Continuity of Care Document ---
Author Organization [facility]3] Adult Medicine Address [address] [place] [address]- Care Team Providers Care Tube Coverer Name Role Phone Carlton GANDHI, Tri Burgess Primary Care Physician [facility] Date[facility]): 04/08/24 - 05/08/24 [facility] Adult Medicine [address] [place] [address]- Encounter Type: Triage Allergies, Adverse Reactions, Alerts [...] Recorded 1Result Comment: Unit: Unknown Route: Subcutaneous Car Supplier: Merck and [employer]. 2Result Comment: Unit: Unknown Route: Subcutaneous Car Supplier: Merck and [employer]. 3Result Comment: Unit: Unknown Route: Intramuscular Car Supplier: Merck, Sharp, Dohme 4Result Comment: Unit: Unknown Route: Intramuscular Car Supplier: Merck and Co. 5Result Comment: Unit: Unknown Route: Intramuscular Car Supplier: GlaxoSmithKline 6Result Comment: Unit: Unknown Route: Intramuscular Car Supplier: Sanofi Pasteur 7Result Comment: Unit: Unknown Route: Intramuscular Car Supplier: hyaquine Medications Advair Diskus 500 mcg-50 mcg inhalation powder 1, inhalation, Inhalation, 2 times a day, Rinse mouth and throat after use. use for prevention of shortness of breath., # 3 each, Refills 1, Tot. Refills 1, Maintenance, 01/06/23 11:29:00 AM EDT, Inhaler, Route to Pharmacy Electronically, [id number], [facility]/pharmacy #1972, Label in Thai, 158, cm, 01/06/23 10:37:00 EDT, Height, 108, kg, 09/16/22 17:43:00 EDT, Dry Weight Start Date: 01/06/23 Stop Date: 07/05/23 Status: Ordered Quantity: 3.0 Unit: each Repeat number: 2 Indication: Unspecified asthma, uncomplicated atorvastatin 10 mg oral tablet 1 tablet = 10 mg, By Mouth, Daily, Take for cholesterol and diabetes management., # 90 tablet, 0 Refills, Maintenance, 11/07/23 3:12:00 PM EDT, [facility]/pharmacy #1972, Label in Thai., 158, cm, 09/11/23 15:00:00 EDT, Height, 108, [...] PM EST, Lotion, [facility], Label in Thai., 155, cm, 05/04/22 10:40:00 EST, Height, 50, [...] Maintenance, 03/15/23 6:47:00 AM EST, [facility], 30, APPLY 2 GRAMS 4 TIMES A [...] EDT, EC Capsule, [facility], Label in Thai., 158, cm, 09/11/23 15:00:00 EDT, Height, 108, kg, 09/16/22 17:43:00 EDT, Dry Weight Start Date: 09/11/23 Stop Date: 03/09/24 Status: Ordered Quantity: 60.0 Unit: capsule Repeat number: 6 Indication: Encounter for general adult medical examination without abnormal findings famotidine 40 mg oral tablet 1 tablet, By Mouth, 2 times a day, # 60 tablet, 0 Refills, Maintenance, 05/03/24 2:14:00 PM EST, [facility], 158, cm, 04/18/24 13:42:00 EST, Height, 110, kg, 03/14/24 17:34:00 EST, Dry Weight Start Date: 05/03/24 Stop Date: 06/02/24 Status: Ordered Quantity: 60.0 Unit: tablet Repeat number: 1 fluconazole 150 [...] 3:36:00 PM EDT, Route to Pharmacy Electronically, [facility]/pharmacy #1972, Partial fill upon patient request [...] 11 Refills, Maintenance, 04/08/24 9:33:00 AM EST, [facility] STORE 71894, 158, cm, 03/20/24 13:07:00 EST, Height, 110, kg, 03/14/24 17:34:00 EST, Dry Weight Start Date: 04/08/24 Status: Ordered Quantity: 15.0 Unit: Unknown Repeat number: 1 lisinopril 10 mg oral tablet 10 mg, 1, tablet, By Mouth, Daily, Take for management of blood pressure., # 90 tablet, Refills 3, Tot. Refills 3, Maintenance, 04/04/23 2:20:00 PM EST, Route to Pharmacy Electronically, [facility]/pharmacy #1972, Label in Thai., 158, cm, 04/04/23 13:58:00 EST, Height, 108, kg, 09/16/22 17:43:00 EDT, DryWeight Start Date: 04/04/23 Stop Date: 03/29/24 Status: Ordered Quantity: 90.0 Unit: tablet Repeat number: 4 MetFORMIN (Eqv-Glucophage XR) 500 mg oral tablet, extended release 2 tablet, By Mouth, 2 times a day, # 360 tablet, 2 Refills, Maintenance, 02/19/24 2:58:00 PM EST, [facility] STORE [id number], 154, cm, 12/22/23 14:25:00 EDT, Height, 108, [...] 05/04/22 Status: Ordered Repeat number: 1 Pen [place], 31 G x 5 mm BD Ultra Fine III See Instructions, # 100 each, Refills 5, Tot. Refills 5, Maintenance, Use as directed to adminiser insulin dx. e11.9 duration:lifetime, 03/30/23 1:39:00 PM EST, Supply, 158, cm, 01/06/23 10:37:00 EDT,Height, 108, kg, 09/16/22 17:43:00 EDT, Dry Weight Start Date: 03/30/23 Status: Ordered Quantity: 100.0 Unit: each Repeat number: 6 Pen [place], 32 G x 4 mm BD Ultra [...] times a day, on an empty stomach syriac label please, # 120 tablet, Refills 1, Tot. Refills 1, Maintenance, 09/11/23 4:06:00 PM EDT, Route to Pharmacy Electronically, [facility]/pharmacy #1972, Partial fill upon patient request [...] 2:58:00 PM EST, Route to Pharmacy Electronically, [facility] STORE [id number], 154, cm, 12/22/23 14:25:00 EDT, Height, 108, kg, 12/14/23 15:18:00 EDT, Dry Weight Start Date: 02/19/24 Status: Ordered Quantity: 90.0 Unit: tablet Repeat number: 1 Trulicity Pen 1.5 mg/0.5 mL subcutaneous solution = 1.5 mg, Subcutaneous Injection, Every week, rotate injection sites, # 1 each, 5 Refills, Maintenance, 12/22/23 2:52:00 PM EDT, Solution, [facility]/pharmacy #1972, Partial fill upon patient request [...] Maintenance, 05/02/23 7:12:00 AM EST, [facility], 158, cm, 04/04/23 13:58:00 EST, Height, 108, [...] Gynecology and Gastroenterology s of Confirmed Active Non-Maltese speaking patient Confirmed Active Hepatomegaly on CT [place] 2 Confirmed Active Low back pain Confirmed 03/17/15 Active Microalbuminuria - minimal Confirmed 03/2023 Active Breast: multiple cysts of breast Confirmed Active 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 Monitored by the [facility] Nurse. 4CT chest 2023 [facility] Social History Social History Type Response Smoking Status Type: Cigarettes;[place] smoker entered on: 01/27/15 Sex Sex Representation Female (finding) Patient Care team information Care Team Personnel Name: Tri Vincent MD Position: [facility] Physician - Primary Care Member Role: PCP Address: [address] [place] [address]- Telecom: Care Team Related Persons Name: MEGAN MINER Insurance Providers Guarantor name: LORENZO ESPINAL Health Plan Information #: 1 Payer: [facility] Member Number: NA Policy Number: NA Group Number: NA
--- OUTSIDE RECORDS SUMMARY | 2024-05-15 13:23 | XMS_ITS | Continuity of Care Document ---
Author Organization [facility] Address [address] [place] [address]- Care Team Providers Care Nitric Acid Concentrator Operator Name Role Phone Carlton GANDHI, Tri Burgess Primary Care Physician [facility]): 04[facility]24 - 05/02/24 [facility] [place] [address] [address] Encounter Type: Triage Allergies, Adverse Reactions, Alerts [...] Recorded 1Result Comment: Unit: Unknown Route: Subcutaneous Patrol Police Lieutenant: [employer] 2Result Comment: Unit: Unknown Route: Subcutaneous Patrol Police Lieutenant: [employer] 3Result Comment: Unit: Unknown Route: Intramuscular Patrol Police Lieutenant: Merck, Sharp, Dohme 4Result Comment: Unit: Unknown Route: Intramuscular Patrol Police Lieutenant: [employer]ck [employer]. 5Result Comment: Unit: Unknown Route: Intramuscular Patrol Police Lieutenant: GlaxoSmithKline 6Result Comment: Unit: Unknown Route: Intramuscular Patrol Police Lieutenant: Sanofi Pasteur 7Result Comment: Unit: Unknown Route: Intramuscular Patrol Police Lieutenant: GlaxoSmithKline Medications Advair Diskus 500 mcg-50 mcg inhalation powder 1, inhalation, Inhalation, 2 times a day, Rinse mouth and throat after use. use for prevention of shortness of breath., # 3 each, Refills 1, Tot. Refills 1, Maintenance, 01/06/23 11:29:00 AM EDT, Inhaler, Route to Pharmacy Electronically, [id number], [facility]/pharmacy #1972, Label in [place], 158, cm, 01/06/23 10:37:00 EDT, Height, 108, kg, 09/16/22 17:43:00 EDT, Dry Weight Start Date: 01/06/23 Stop Date: 07/05/23 Status: Ordered Quantity: 3.0 Unit: each Repeat number: 2 Indication: Unspecified asthma, uncomplicated atorvastatin 10 mg oral tablet 1 tablet = 10 mg, By Mouth, Daily, Take for cholesterol and diabetes management., # 90 tablet, 0 Refills, Maintenance, 11/07/23 3:12:00 PM EDT, [facility]/pharmacy #1972, Label in [place]., 158, cm, 09/11/23 15:00:00 EDT, Height, 108, [...] PM EST, Lotion, [facility], Label in [place]., 155, cm, 05/04/22 10:40:00 EST, Height, 50, [...] Maintenance, 03/15/23 6:47:00 AM EST, [facility], 30, APPLY 2 GRAMS 4 TIMES A [...] EDT, EC Capsule, [facility], Label in [place]., 158, cm, 09/11/23 15:00:00 EDT, Height, 108, [...] 3:36:00 PM EDT, Route to Pharmacy Electronically, [facility]/pharmacy #1972, Partial fill upon patient request [...] 11 Refills, Maintenance, 04/08/24 9:33:00 AM EST, [facility] STORE 25225, 158, cm, 03/20/24 13:07:00 EST, Height, 110, kg, 03/14/24 17:34:00 EST, Dry Weight Start Date: 04/08/24 Status: Ordered Quantity: 15.0 Unit: Unknown Repeat number: 1 lisinopril 10 mg oral tablet 10 mg, 1, tablet, By Mouth, Daily, Take for management of blood pressure., # 90 tablet, Refills 3, Tot. Refills 3, Maintenance, 04/04/23 2:20:00 PM EST, Route to Pharmacy Electronically, [facility]/pharmacy #1972, Label in [place]., 158, cm, 04/04/23 13:58:00 EST, Height, 108, kg, 09/16/22 17:43:00 EDT, DryWeight Start Date: 04/04/23 Stop Date: 03/29/24 Status: Ordered Quantity: 90.0 Unit: tablet Repeat number: 4 MetFORMIN (Eqv-Glucophage XR) 500 mg oral tablet, extended release 2 tablet, By Mouth, 2 times a day, # 360 tablet, 2 Refills, Maintenance, 02/19/24 2:58:00 PM EST, [facility] STORE 31733, 154, cm, 12/22/23 14:25:00 EDT, Height, 108, [...] 05/04/22 Status: Ordered Repeat number: 1 Pen [place], 31 G x 5 mm BD Ultra Fine III See Instructions, # 100 each, Refills 5, Tot. Refills 5, Maintenance, Use as directed to adminiser insulin dx. e11.9 duration:lifetime, 03/30/23 1:39:00 PM EST, Supply, 158, cm, 01/06/23 10:37:00 EDT,Height, 108, kg, 09/16/22 17:43:00 EDT, Dry Weight Start Date: 03/30/23 Status: Ordered Quantity: 100.0 Unit: each Repeat number: 6 Pen [place], 32 G x 4 mm BD Ultra [...] times a day, on an empty stomach mohawk label please, # 120 tablet, Refills 1, Tot. Refills 1, Maintenance, 09/11/23 4:06:00 PM EDT, Route to Pharmacy Electronically, [facility]/pharmacy #1972, Partial fill upon patient request [...] 2:58:00 PM EST, Route to Pharmacy Electronically, [facility] STORE [id number], 154, cm, 12/22/23 14:25:00 EDT, Height, 108, kg, 12/14/23 15:18:00 EDT, Dry Weight Start Date: 02/19/24 Status: Ordered Quantity: 90.0 Unit: tablet Repeat number: 1 Trulicity Pen 1.5 mg/0.5 mL subcutaneous solution = 1.5 mg, Subcutaneous Injection, Every week, rotate injection sites, # 1 each, 5 Refills, Maintenance, 12/22/23 2:52:00 PM EDT, Solution, [facility]/pharmacy #1972, Partial fill upon patient request [...] Maintenance, 05/02/23 7:12:00 AM EST, [id number], 158, cm, 04/04/23 13:58:00 EST, Height, 108, [...] Gynecology and Gastroenterology s of Confirmed Active Non-Malay speaking patient Confirmed Active Hepatomegaly on CT [place] 2 Confirmed Active Low back pain Confirmed 03/17/15 Active Microalbuminuria - minimal Confirmed 03/2023 Active Breast: multiple cysts of breast Confirmed Active 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 Monitored by the [facility]. 4CT chest 2023 [facility] Social History Social History Type Response Smoking Status Type: Cigarettes;[place] smoker entered on: 01/27/15 Sex Sex Representation Female (finding) Patient Care team information Care Team Personnel Name: Tri Vincent MD Position: [facility] Physician - Primary Care Member Role: PCP Address: [address] [place] [address]- Telecom: Care Team Related Persons Name: MEGAN MINER Insurance Providers Guarantor name: LORENZO ESPINAL Health Plan Information #: 1 Payer: [facility] Member Number: NA Policy Number: NA Group Number: NA
--- OUTSIDE RECORDS SUMMARY | 2024-05-15 13:23 | XMS_ITS | Continuity of Care Document ---
Author Organization [facility] Address [address] [place] [address]- Care Team Providers Care Clay Hoister Name Role Phone Carlton GANDHI, Tri Burgess Primary Care Physician [facility]counter [facility] Date(s): 03/22/24 - 04/21/24 [facility] [address] [place] [address]- Encounter Type: Triage Allergies, Adverse Reactions, Alerts [...] Recorded 1Result Comment: Unit: Unknown Route: Subcutaneous Inter Com Servicer: Merck and [employer] 2Result Comment: Unit: Unknown Route: Subcutaneous Inter Com Servicer: [employer]ck [employer] 3Result Comment: Unit: Unknown Route: Intramuscular Inter Com Servicer: Merck, Sharp, Dohme 4Result Comment: Unit: Unknown Route: Intramuscular Inter Com Servicer: [employer]ck and [employer]. 5Result Comment: Unit: Unknown Route: Intramuscular Inter Com Servicer: GlaxoSmithKline 6Result Comment: Unit: Unknown Route: Intramuscular Inter Com Servicer: Sanofi Pasteur 7Result Comment: Unit: Unknown Route: Intramuscular Inter Com Servicer: GlaxoSmithKline Medications Advair Diskus 500 mcg-50 mcg inhalation powder 1, inhalation, Inhalation, 2 times a day, Rinse mouth and throat after use. use for prevention of shortness of breath., # 3 each, Refills 1, Tot. Refills 1, Maintenance, 01/06/23 11:29:00 AM EDT, Inhaler, Route to Pharmacy Electronically, [id number], [facility], Label in Malay, 158, cm, 01/06/23 10:37:00 EDT, Height, 108, [...] 3:12:00 PM EDT, [facility], Label in Malay., 158, cm, 09/11/23 15:00:00 EDT, Height, 108, [...] PM EST, Lotion, [facility], Label in Malay., 155, cm, 05/04/22 10:40:00 EST, Height, 50, [...] Maintenance, 03/15/23 6:47:00 AM EST, [id number], 30, APPLY 2 GRAMS 4 TIMES A [...] EDT, EC Capsule, [facility], Label in Malay., 158, cm, 09/11/23 15:00:00 EDT, Height, 108, [...] PM EDT, Route to Pharmacy Electronically, [facility]/pharmacy #1972, Partial fill upon patient request [...] Refills, Maintenance, 04/08/24 9:33:00 AM EST, [facility] ST[id number], 158, cm, 03/20/24 13:07:00 EST, Height, 110, kg, 03/14/24 17:34:00 EST, Dry Weight Start Date: 04/08/24 Status: Ordered Quantity: 15.0 Unit: Unknown Repeat number: 1 lisinopril 10 mg oral tablet 10 mg, 1, tablet, By Mouth, Daily, Take for management of blood pressure., # 90 tablet, Refills 3, Tot. Refills 3, Maintenance, 04/04/23 2:20:00 PM EST, Route to Pharmacy Electronically, [facility]/pharmacy #1972, Label in Malay., 158, cm, 04/04/23 13:58:00 EST, Height, 108, kg, 09/16/22 17:43:00 EDT, DryWeight Start Date: 04/04/23 Stop Date: 03/29/24 Status: Ordered Quantity: 90.0 Unit: tablet Repeat number: 4 MetFORMIN (Eqv-Glucophage XR) 500 mg oral tablet, extended release 2 tablet, By Mouth, 2 times a day, # 360 tablet, 2 Refills, Maintenance, 02/19/24 2:58:00 PM EST, [facility], 154, cm, 12/22/23 14:25:00 EDT, Height, 108, [...] 05/04/22 Status: Ordered Repeat number: 1 Pen Webster, 31 G x 5 mm BD Ultra Fine III See Instructions, # 100 each, Refills 5, Tot. Refills 5, Maintenance, Use as directed to adminiser insulin dx. e11.9 duration:lifetime, 03/30/23 1:39:00 PM EST, Supply, 158, cm, 01/06/23 10:37:00 EDT,Height, 108, kg, 09/16/22 17:43:00 EDT, Dry Weight Start Date: 03/30/23 Status: Ordered Quantity: 100.0 Unit: each Repeat number: 6 Pen Webster, 32 G x 4 mm BD Ultra [...] times a day, on an empty stomach greek label please, # 120 tablet, Refills 1, Tot. Refills 1, Maintenance, 09/11/23 4:06:00 PM EDT, Route to Pharmacy Electronically, [facility]/pharmacy #1972, Partial fill upon patient request [...] PM EST, Route to Pharmacy Electronically, [facility] 636[facility], 154, cm, 12/22/23 14:25:00 EDT, Height, 108, kg, 12/14/23 15:18:00 EDT, Dry Weight Start Date: 02/19/24 Status: Ordered Quantity: 90.0 Unit: tablet Repeat number: 1 Trulicity Pen 1.5 mg/0.5 mL subcutaneous solution = 1.5 mg, Subcutaneous Injection, Every week, rotate injection sites, # 1 each, 5 Refills, Maintenance, 12/22/23 2:52:00 PM EDT, Solution, [facility]/pharmacy #1972, Partial fill upon patient request [...] Maintenance, 05/02/23 7:12:00 AM EST, [facility], 158, cm, 04/04/23 13:58:00 EST, Height, 108, [...] Gynecology and Gastroenterology s of Confirmed Active Non-Tamazight speaking patient Confirmed Active Hepatomegaly on CT [place] 2 Confirmed Active Low back pain Confirmed 03/17/15 Active Microalbuminuria - minimal Confirmed 03/2023 Active Breast: multiple cysts of breast Confirmed Active 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 Monitored by the [facility] Nurse. 4CT chest 2023 [facility] Social History Social History Type Response Smoking Status Type: Cigarettes;[facility] er smoker entered on: 01/27/15 Sex Sex Representation Female (finding) Patient Care team information Care Team Personnel Name: Carlton GANDHI, Tri Burgess Position: [facility] Physician - Primary Care Member Role: PCP Address: [address] [place] [address] Telecom: Care Team Related Persons Name: MEGAN MINER Insurance Providers Guarantor name: LORENZO ESPINAL Health Plan Information #: 1 Payer: [employer] Member Number: NA Policy Number: NA Group Number: NA
--- OUTSIDE RECORDS SUMMARY | 2024-05-15 13:24 | XMS_ITS | Continuity of Care Document ---
Author Organization [facility] Address [address] [place] [address]- Care Team Providers Care Asphalt Screed Operator Name Role Phone Carlton GANDHI, Tri Burgess Primary Care Physician [facility] Date(s): 03/18/24 - 04/17/24 [facility] [address] [place] [address]- Encounter Type: Triage Allergies, Adverse Reactions, Alerts [...] Recorded 1Result Comment: Unit: Unknown Route: Subcutaneous Certified Massage Therapist: Merck and [employer]. 2Result Comment: Unit: Unknown Route: Subcutaneous Certified Massage Therapist: [employer]ck [employer]. 3Result Comment: Unit: Unknown Route: Intramuscular Certified Massage Therapist: Merck, Sharp, Dohme 4Result Comment: Unit: Unknown Route: Intramuscular Certified Massage Therapist: Merck and Co. 5Result Comment: Unit: Unknown Route: Intramuscular Certified Massage Therapist: GlaxoSmithKline 6Result Comment: Unit: Unknown Route: Intramuscular Certified Massage Therapist: Sanofi Pasteur 7Result Comment: Unit: Unknown Route: Intramuscular Certified Massage Therapist: GlaxoSmithKline Medications Advair Diskus 500 mcg-50 mcg inhalation powder 1, inhalation, Inhalation, 2 times a day, Rinse mouth and throat after use. use for prevention of shortness of breath., # 3 each, Refills 1, Tot. Refills 1, Maintenance, 01/06/23 11:29:00 AM EDT, Inhaler, Route to Pharmacy Electronically, [id number], [facility], Label in Turkish, 158, cm, 01/06/23 10:37:00 EDT, Height, 108, [...] 3:12:00 PM EDT, [facility], Label in Turkish., 158, cm, 09/11/23 15:00:00 EDT, Height, 108, [...] PM EST, Lotion, [facility], Label in Turkish., 155, cm, 05/04/22 10:40:00 EST, Height, 50, [...] Maintenance, 03/15/23 6:47:00 AM EST, [facility], 30, APPLY 2 GRAMS 4 TIMES A [...] EDT, EC Capsule, [facility], Label in Turkish., 158, cm, 09/11/23 15:00:00 EDT, Height, 108, [...] 3:36:00 PM EDT, Route to Pharmacy Electronically, [facility]/pharmacy #1972, Partial fill upon patient request if [...] 11 Refills, Maintenance, 04/08/24 9:33:00 AM EST, [facility] STORE [facility], 158, cm, 03/20/24 13:07:00 EST, Height, 110, kg, 03/14/24 17:34:00 EST, Dry Weight Start Date: 04/08/24 Status: Ordered Quantity: 15.0 Unit: Unknown Repeat number: 1 lisinopril 10 mg oral tablet 10 mg, 1, tablet, By Mouth, Daily, Take for management of blood pressure., # 90 tablet, Refills 3, Tot. Refills 3, Maintenance, 04/04/23 2:20:00 PM EST, Route to Pharmacy Electronically, [facility]/pharmacy #1972, Label in Turkish., 158, cm, 04/04/23 13:58:00 EST, Height, 108, kg, 09/16/22 17:43:00 EDT, DryWeight Start Date: 04/04/23 Stop Date: 03/29/24 Status: Ordered Quantity: 90.0 Unit: tablet Repeat number: 4 MetFORMIN (Eqv-Glucophage XR) 500 mg oral tablet, extended release 2 tablet, By Mouth, 2 times a day, # 360 tablet, 2 Refills, Maintenance, 02/19/24 2:58:00 PM EST, [facility] STORE 36224, 154, cm, 12/22/23 14:25:00 EDT, Height, 108, [...] 05/04/22 Status: Ordered Repeat number: 1 Pen Redstone, 31 G x 5 mm BD Ultra Fine III See Instructions, # 100 each, Refills 5, Tot. Refills 5, Maintenance, Use as directed to adminiser insulin dx. e11.9 duration:lifetime, 03/30/23 1:39:00 PM EST, Supply, 158, cm, 01/06/23 10:37:00 EDT,Height, 108, kg, 09/16/22 17:43:00 EDT, Dry Weight Start Date: 03/30/23 Status: Ordered Quantity: 100.0 Unit: each Repeat number: 6 Pen Redstone, 32 G x 4 mm BD Ultra [...] times a day, on an empty stomach polish label please, # 120 tablet, Refills 1, Tot. Refills 1, Maintenance, 09/11/23 4:06:00 PM EDT, Route to Pharmacy Electronically, [facility]/pharmacy #1972, Partial fill upon patient request if [...] 2:58:00 PM EST, Route to Pharmacy Electronically, [facility]ORE 280[facility], 154, cm, 12/22/23 14:25:00 EDT, Height, 108, [...] Refills, Maintenance, 11/16/22 11:55:00 AM EDT, Tablet, 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 Monitored by the [facility] Nurse. 4CT chest 2023 [facility] Social History Social History Type Response Smoking Status Type: Cigarettes;[facility] er smoker entered on: 01/27/15 Sex Sex Representation Female (finding) Patient Care team information Care Team Personnel Name: Carlton GANDHI, Tri Burgess Position: [facility] Physician - Primary Care Member Role: PCP Address: [address] [place] [address] Telecom: Care Team Related Persons Name: MEGAN MINER Insurance Providers Guarantor name: LORENZO ESPINAL Health Plan Information #: 1 Payer: [employer] [place] Member Number: NA Policy Number: NA Group Number: NA
--- OUTSIDE RECORDS SUMMARY | 2024-05-15 13:24 | XMS_ITS | Clinical Summary ---
Author Organization [facility] Address [address] [place] [address] Care Team Providers Care Hospice Administrator Name Role Phone Stu Clark END USER SUPPORT SPECIALIST Primary Care Provider [phone] Source Comments PLEASE NOTE, if this patient is a minor, it may be UNLAWFUL to discuss sensitive information that is contained in these records (such as FAMILY PLANNING, MENTAL HEALTH or SUBSTANCE ABUSE) with the minor patient's parent or other person without the patient's specific authorization.[facility] Allergies No known active allergies Medications traZODone (DESYREL) 50 mg tabletIndication s:Night terrors,Insomnia due to other mental disorder Take 1 Tab by mouth nightly at bedtime. 30 Tab 0 5 Active sertraline (ZOLOFT) 25 mg tabletIndication s:PTSD (post-traumatic stress disorder) Take 1 Tab by mouth once daily. 30 Tab 1 6 Active ibuprofen (ADVIL,MOTRIN) 600 mg tabletIndication s:Knee pain, bilateral Take 1 Tab by mouth 3 (three) times daily as needed for pain. 30 Tab 1 6 Active cyclobenzaprine (FLEXERIL) 10 mg tabletIndication s:Bilateral low back pain without sciatica Take 1 Tab by mouth nightly at bedtime. 30 Tab 1 6 Active clotrimazole-bet amethasone (LOTRISONE) 1-0.05 % cream Apply topically 2 (two) times daily. 15 g 2 6 Active Petrolatum, White-Lanolin oint Apply topically. Act bianka vitamin B-6 50 mg tabletIndication s:drug-induced pyridoxine deficiency Take 50 mg by mouth once daily. Indications: Drug-Induced Pyridoxine Deficiency Active CHOLECALCIFEROL, VITAMIN D3, (D3-2000 ORAL) Take 1 Tab by mouth once daily. Active isoniazid (NYDRAZID) 300 mg tabletIndication s:inactive tuberculosis Take 300 mg by mouth once daily. Indications: Inactive Tuberculosis Active lancetsIndicatio ns:Type 2 diabetes mellitus without complication ([facility]) Freestyle lancets. Check once daily, fasting on mon,mon,mondayan d postprandial on mon,,sat 100 Each 1 6 Active blood sugar diagnostic (FREESTYLE TEST) strips Free style freedom lite test strips- use once daily as directed 50 Each 3 6 Active dextromethorphan -guaiFENesin (ROBITUSSIN DM) 10-100 mg/5 mL liquidIndication s:Bronchitis, acute, with bronchospasm Take 10 mL by mouth 3 (three) times daily as needed for cough. 118 mL 1 6 Active albuterol sulfate hfa 90 mcg/actuation inhalerIndicatio ns:Shortness of breath Inhale 2 Puffs into the lungs every 6 (six) hours as needed for shortness of breath. 8 g 1 6 Active azithromycin (ZITHROMAX) 250 mg tabletIndication s:Bronchitis, acute, with bronchospasm Take 2 tabs x 1 dose then 1 tab po daily for 4 days. 6 Tab 0 6 Active naproxen (NAPROSYN) 500 mg tabletIndication s:Chronic pain of both knees Take 1 Tab by mouth 2 (two) times daily with a meal. 60 Tab 0 6 Active diclofenac (VOLTAREN) 1 % gelIndications:C hronic pain of both knees Apply topically 2 (two) times daily. Apply to most painful area. 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 ANNMARIE (obstructive sleep apnea) 05/29/2015 Knee pain, bilateral 03/17/2015 Overview (06/09/2015): 03/18/15- normal xray at [facility]. Bilateral low back pain without sciatica 016 Overview (06/09/2015): Xray lumbar spine- small degenerative osteophyte Arising from superior endplate of L4. At [facility] on 03/18/15 Obese 10/27/2014 SOB (shortness of breath) 10/27/2014 Immune to hepatitis A 10/27/2014 Overview (11/03/2015): Immune by serologic Carpal tunnel syndrome of right wrist 09/24/2014 Overview (09/24/2014): [place] Told might need surgery but she was afraid Immune to varicella 09/24/2014 Overview (11/03/2015): Immune by serologic Resolved Problems Problem Noted Date Diagnosed Date Resolved Date Bronchitis 08/28/2015 08/28/2015 Bronchitis, acute, with bronchospasm 08/28/2015 10/30/2020 Immunizations Name Administration Dates Next Due Hep B, Adult/Adol (ENERGIX/RECOMBIVAX) 6,12/10/2014,10/27/2014 MMR (MMR II/Priorix) 06/05/2015,09/24/2014 TDAP 09/24/2014 Td (adult), 5 Lf tetanus tox oid, preservative free 10/27/2014 Social History Tobacco Use Types Packs/Day Years Used Date Smoking Tobacco: Never Smokeless Tobacco: Never Tobacco Cessation:Counseling Given: No Alcohol Use Standard Drinks/Week Comments No 0 (1 standard drink = 0.6 oz pur e alcohol) Social Connections Answer Date Recorded Social Connections and Isolation 0 11/04/2018 Financial Resource Strain Answer Date R ecorded Financial Resource Strain 0 2018 Stress Answer Date Recorded Stress 0 11/04/2018 Physical Activity Answer Date Recorded Physical Activity 0 11/04/2018 Food Insecurity Answer Date Recorded Food 0 11/04/2018 Transportation Needs Answer Date Record ed Transportation 0 11/04/2018 Housing Stability Answer Date Recorded Housing 0 11/04/2018 Safety and Environment Answer Date Kyle rded Safety 0 11/04/2018 Utilities Answer Date Recorded Utilities 0 11/04/2018 Employment Answer Date Recorded Employment 0 11/04/2018 Comments No Sex and Gender Information Value Date Recorded Sex Assigned at Not on file Legal Sex Female 12:17 PM PDT Gender Identity Not on file Sexual Orientation Not on file Last Filed Vital Signs Vital Sign Reading Time Taken Comments Blood Pressure 135/70 12/09/2015 1:24 PM EDT Pulse 81 12/09/2015 1:24 PM EDT Temperature 36.8 ??C (98.3 ??F) 12/09/2015 1:24 PM ED T Respiratory Rate 18 12/09/2015 1:24 PM EDT Oxygen Saturation 98% 08/28/2015 9:15 AM EDT Inhaled Oxygen Concentration - - Weight 105.2 kg (232 lb) 12/09/2015 1:24 PM EDT Height 154.9 cm (5' 1 ) 11/20/2015 9:14 AM EDT Body Mass Index 43.84 11/20/2015 9:14 AM EDT Plan of Treatment Not on file Insurance [place]ICA[place] Care Teams Hospice Administrator Relationship Specialty Start Date End Date Stu Clark NP [address] [place] [address] PCP - General 01/18/18
== END 2024-05-15 11:48 | disposition home or self-care (01) ==
PROVIDERS: Visit Provider Nurse Practitioner Family
DX: R31.29 Other microscopic hematuria (principal); R10.30 Lower abdominal pain, unspecified; Z13.9 Encounter for screening, unspecified
CPT/HCPCS: 99204

== ENCOUNTER 2024-05-15 11:05 | Outpatient (REF) | payer OTHER, SELFPAY ==
[2024-05-15 16:49] LABS: Urine Cytology See Pathology rpt
--- OUTSIDE RECORDS SUMMARY | 2024-05-15 19:20 | XMS_ITS | Clinical Summary ---
Author Organization [facility] Address [address] [place] [address] Care Team Providers Care Auto Body Technician Name Role Phone Stu Clark NURSE SPECIAL Primary Care Provider Source Comments PLEASE NOTE, if this patient [...] lancetsIndicatio ns:Type 2 diabetes mellitus without complication ([facility]) Freestyle lancets. 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) 06/11/2015 Depression 05/29/2015 Overview (07/08/2015): dr Margaret,luz marina. ANNMARIE (obstructive sleep apnea) 05/29/2015 Knee pain, bilateral 03/17/2015 Overview (06/09/2015): 03/18/15- normal xray at [facility]. Bilateral low back pain without sciatica 016 Overview (06/09/2015): Xray lumbar spine- small degenerative osteophyte Arising from superior endplate of L4. At [facility] on 03/18/15 Obese 10/27/2014 SOB (shortness of [...] Plan of Treatment Not on file Insurance [place] MEDICAID Care Teams Auto Body Technician Relationship Specialty Start Date End Date Stu Clark NP [address] [place] [address] PCP - General 01/18/18
== END 2024-05-15 11:06 | disposition home or self-care (01) ==
LOC: HO.LNP 11:05
PROVIDERS: Visit Provider Nurse Practitioner Family
DX: N39.41 Urge incontinence (principal); R31.29 Other microscopic hematuria; R10.30 Lower abdominal pain, unspecified
CPT/HCPCS: 51798; 81003; 88112; 99202

== ENCOUNTER 2024-08-13 14:08 | Outpatient (REF) | payer OTHER, SELFPAY ==
--- OUTSIDE RECORDS SUMMARY | 2024-08-13 15:57 | XMS_ITS | Clinical Summary ---
Author Organization [facility] Address [address] [place] [address] Care Team Providers Care Pharmacogeneticist Name Role Phone Stu lCark PRINCIPAL SYSTEMS ENGINEER Primary Care Provider [phone] Source Comments PLEASE NOTE, if this patient [...] lancetsIndicatio ns:Type 2 diabetes mellitus without complication ([facility]) Freestyle lancets. 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 ANNMARIE (obstructive sleep apnea) 05/29/2015 Knee pain, bilateral 03/17/2015 Overview (06/09/2015): 03/18/15- normal xray at [facility]. Bilateral low back pain without sciatica 016 Overview (06/09/2015): Xray lumbar spine- small degenerative osteophyte Arising from superior endplate of L4. At [facility] on 03/18/15 Obese 10/27/2014 SOB (shortness [...] Bronchitis, acute, with bronchospasm 08/28/2015 10/30/2020 Immunizations Immunization Administration Dates Next Due Hep B, Adult/Adol [...] Plan of Treatment Not on file Insurance [place] MEDICAID Care Teams Pharmacogeneticist Relationship Specialty Start Date End Date Stu Clark NP [address] [place] [address] PCP - General 01/18/18
== END 2024-08-13 14:09 | disposition home or self-care (01) ==
LOC: HO.HMGCX 14:08
PROVIDERS: Visit Provider Nurse Practitioner Family
DX: Z13.89 Encounter for screening for other disorder (principal)

== ENCOUNTER 2024-08-14 10:50 | Outpatient (REF) | payer OTHER, SELFPAY ==
--- NOTE | ~2024-08-14 | US_ITS ---
CLINICAL HISTORY: R31.29 - Other microscopic hematuria US Renal Comparison: CT/SR - CT ABDOMEN PELVIS W IV CON - 03/15/24 23:53 EST Findings: Right kidney normal size and echotexture, 15 cm length. Left kidney normal size and echotexture, 15 cm length. No collecting system dilatation of either kidney. Normal color Doppler. Urinary bladder is unremarkable. Prevoid volume 288 mL. Postvoid volume 57 mL. Bilateral ureteral jets are visualized. IMPRESSION: 1. Normal kidneys. This document has been electronically signed by: Que Abdullahi MD on 08/14/2024 14:48:57
--- OUTSIDE RECORDS SUMMARY | 2024-08-14 11:42 | XMS_ITS | Clinical Summary ---
Author Organization [facility] Address [address] [place] [address] Care Team Providers Care Process Safety Management Engineer Name Role Phone Stu Clark EQUITY MANAGER Primary Care Provider [phone] Source Comments PLEASE NOTE, if this patient [...] lancetsIndicatio ns:Type 2 diabetes mellitus without complication ([facility]) Freestyle lancets. 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 ANNMARIE (obstructive sleep apnea) 05/29/2015 Knee pain, bilateral 03/17/2015 Overview (06/09/2015): 03/18/15- normal xray at [facility]. Bilateral low back pain without sciatica 016 Overview (06/09/2015): Xray lumbar spine- small degenerative osteophyte Arising from superior endplate of L4. At [facility] on 03/18/15 Obese 10/27/2014 SOB (shortness of [...] Plan of Treatment Not on file Insurance [place] MEDICAID Care Teams Process Safety Management Engineer Relationship Specialty Start Date End Date Stu Clark NP [address] [place] [address] PCP - General 01/18/18
== END 2024-08-14 10:51 | disposition home or self-care (01) ==
LOC: HO.HMGCX 10:50
PROVIDERS: PCP Internal Medicine; Visit Provider Nurse Practitioner Family
DX: R31.29 Other microscopic hematuria (principal)
CPT/HCPCS: 76770

== ENCOUNTER → 2024-08-14 10:50 | Outpatient (BNV) | payer OTHER, SELFPAY | PROVIDERS: PCP Internal Medicine; Visit Provider Nuclear Medicine | DX: R31.29 Other microscopic hematuria (principal) | CPT/HCPCS: 76770 ==

== ENCOUNTER 2024-09-18 08:29 | Outpatient (REF) | payer OTHER, SELFPAY | END 2024-09-18 08:30 | disposition home or self-care (01) | LOC: HO.LNP 08:29 | PROVIDERS: Visit Provider Nurse Practitioner Family | DX: R31.29 Other microscopic hematuria (principal); Z13.9 Encounter for screening, unspecified; R10.30 Lower abdominal pain, unspecified; Z79.899 Other long term (current) drug therapy; Z79.4 Long term (current) use of insulin; Z79.84 Long term (current) use of oral hypoglycemic drugs | CPT/HCPCS: 51798; 81003; 88112; 99212 ==

== ENCOUNTER 2024-09-18 08:29 | Outpatient (AMB) | payer OTHER, SELFPAY ==
--- NOTE | 2024-09-18 08:34 | A.OFFVIS_ITS ---
Intake Visit Reasons: 3m/US(set) Intake Note: Patient presents today for follow up on: microscopic hematuria and ultrasound results Imaging Completed: 08/14/24 Urology Medications: none Blood Thinner: none PVR: 0ml's Home Health Travel Ot Required: Yes Home Health Travel Ot Services: Home Health Travel Ot Offered & Declined Accompanied by: Unknown Allergies No Known Allergies Allergy (Verified 09/18/24 09:03) Medication List - Last Reconciled 09/18/24 by LORENZO Bell atorvastatin 10 mg PO DAILY clotrimazole 1% appl topical diclofenac potassium 50 mg PO BID PRN dulaglutide (Trulicity) mg subcut ibuprofen 600 mg PO Q8H PRN insulin glargine (Lantus Solostar U-100 Insulin) units subcut lisinopril 20 mg PO DAILY metformin ER 1,000 mg PO BID trazodone 100 mg PO BEDTIME HPI Comments Details: Scott is a very pleasant 48-year-old Belarusian speaking patient who was accompanied by her daughter at today's office visit in his requesting translation services to be completed by her. She has a past medical history of hyperlipidemia and diabetes. She presents to the office today for follow-up. Of note, patient was seen approximately 3 months ago as a new patient for ongoing lower abdominal pain she had been experiencing. During last office visit a retroperitoneal ultrasound was ordered for further assessment evaluation and patient's urine was sent for urine cytology as she was noted to have microscopic hematuria. These results were reviewed and communicated with the patient today 09/04 bilateral kidneys are normal size and echotexture. No collecting system dilatation of either kidney. The urinary bladder is unremarkable. Urine cytology 06/04 Negative for high-grade urothelial carcinoma. She reports pain she had been experiencing has since subsided. She currently denies any bothersome urinary issues or concerns. In office urinalysis results reviewed with the patient today no microscopic hematuria. She denies any previous history of nicotine dependence and or workplace chemical exposure. She denies urinary urgency, urinary frequency, incontinence, nocturia, hematuria, dysuria, foul smelling urine, changes to urinary stream, flank pain, fever, and or chills. She is happy with her current voiding parameters. We discussed at length potential causes of microscopic hematuria as well as lower abdominal pain she had been experiencing. She otherwise offers no other issues or concerns at this time. Review of Systems Const All systems reviewed & are unremarkable except as noted in HPI and below Physical Exam Const General: cooperative, healthy appearing, comfortable, no acute distress, well developed, alert and awake Nutritional Appearance: overweight Orientation/consciousness: patient oriented x3 Limitations: language barrier and ambulation with cane HEENT Head: Yes normal to inspection, Yes normocephalic and Yes atraumatic Ears: hearing grossly normal bilaterally Eyes General: appearance normal, both eyes and all related structures Neck Neck: Yes normal visual inspection and Yes trachea midline Chest Chest palpation & inspection: normal inspection of the chest Resp Effort & Inspection: normal respiratory effort and able to speak in complete sentences Cardio Rate: regular rate GI Inspection: Yes normal to inspection General: Yes no CVA tenderness Back/Spine/Pelvis Back: no CVA tenderness Skin General skin exam: no rashes or lesions noted Neuro General: patient oriented x3 Extrem General: Yes normal to inspection Psych Appearance: grossly normal and well kempt Mental Status: mental status grossly normal Speech and movement: Normal speech and movement present and Clear speech present Affect: normal affect Attitude: cooperative Thought process: Normal thought process present Thought content: Normal thought content present Insight: Fair insight present (Psych) Judgement: Fair judgement present (Psych) Office Procedures Post Void Residual Post Residual Void Post Void Residual (PVR): 0 [id number] Void Residual by ultrasound Results AMB Urinalysis, Automated UA Leukoctes 0 Irma/uL Last Edit by BRAIN Katz on 09/18/24 08:54 UA Nitrite Last Edit by BRAIN Katz on 09/18/24 08:54 UA Urobilinogen 0.2 mg/dL Last Edit by BRAIN Katz on 09/18/24 08:5 4 UA Protein 0 mg/dL Last Edit by BRAIN Katz on 09/18/24 08:54 UA pH 6.0 Last Edit by BRAIN Katz on 09/18/24 08:54 UA Blood 0 Stepan/uL Last Edit [facility] on 09/18/24 08:54 UA Specific [place] 1.015 Last Edit by Disha Ciarayamil [facility] on 09/18/24 08: 54 UA Ketone Last Edit by Disha Ciarayamil [facility] on 09/18/24 08:54 UA Bilirubin 0 mg/dL Last Edit by Disha Ciarayamil [facility] on 09/18/24 08:54 UA Glucose 0 mg/dL Last Edit by Disha Ciarayamil [facility] on 09/18/24 08:54 Results Reviewed Results Reviewed: Laboratory Last Values Urine pH (Auto) 6.0 09/18/24 08:49 Specific [place] (Auto) 1.015 09/18/24 08:49 Urine Protein (Auto) 0 mg/dL 09/18/24 08:49 Glucose (UA)(Auto) 0 mg/dL 09/18/24 08:49 Urine Blood (Auto) 0 Stepan/uL 09/18/24 08:49 Urine Bilirubin (Auto) 0 mg/dL 09/18/24 08:49 Urine Urobilinogen (Auto) 0.2 mg/dL 09/18/24 08:49 Leukocyte Esterase (Auto) 0 Irma/uL 09/18/24 08:49 Date of Service: 08/14/24 Procedure(s): US retroperitoneal comp Findings: Right kidney normal size and echotexture, 15 cm length. Left kidney normal size and echotexture, 15 cm length. No collecting system dilatation of either kidney. Normal color Doppler. Urinary bladder is unremarkable. Prevoid volume 288 mL. Postvoid volume 57 mL. Bilateral ureteral jets are visualized. IMPRESSION: 1. Normal kidneys. Assessment & Plan Assessment & Plan (1) Microscopic hematuria: Code(s): R31.29 - Other microscopic hematuria Category: Medical (2) Lower abdominal pain: Code(s): R10.30 - Lower abdominal pain, unspecified Category: Medical Plan In office urinalysis results reviewed with the patient today; as noted above. Previous urine cytology results reviewed with the patient today; as noted above. Recent retroperitoneal ultrasound results reviewed with the patient today; as noted above. She currently denies any bothersome urinary issues or concerns. She reports be happy with current voiding parameters. Will continue with surveillance monitoring. We did discussed potential causes of microscopic hematuria. All questions were answered. Follow-up in 6 months or sooner with any issues, concerns, and or questions. Orders: Orders AMB Urinalysis Automated Today Z13.9 - Encounter for screening, unspecified AMB Post Void Residual by ultrasound Today R10.30 - Lower abdominal pain, unspecified Urine Cytology Today R31.29 - Other microscopic hematuria Patient Instructions: The patient had an opportunity to ask questions regarding the treatment plan. All questions were answered. Physical exam, labs, and imaging were discussed and reviewed in detail. As well as risks, benefits, and discussion of treatment choices. No major barriers to understanding were identified. The patient expressed understanding and agreement with the above treatment plan. The patient was made aware they should contact our office by phone for worsening of their current condition, the appearance of new symptoms, or with any questions or concerns. Compliance is encouraged with any medications and follow up testing that is ordered. It is a privilege to be allowed the opportunity to participate in? your urological care.? Again, if you have any questions or concerns If you have any questions or concerns please do not hesitate to contact me. The office is [phone]. This note is constructed using voice recognition software. While every effort has been made to ensure accuracy tail edger errors may have been included. Yours sincerely, LORENZO Bell Coding Level of Care Code Est Pt Level 3 (45771) Diagnoses Microscopic hematuria R31.29 Lower abdominal pain R10.30 CPT Codes Post Residual Void - PVR CPT Code: 56261-Hhri Void Residual by ultrasound ([id number])
--- OUTSIDE RECORDS SUMMARY | 2024-09-18 08:41 | XMS_ITS | Clinical Summary ---
Author Organization [facility] Address [address] [place] [address] Care Team Providers Care Livestock Producer Name Role Phone Stu Clark CERTIFIED ANESTHESIOLOGIST ASSISTANT Primary Care Provider [phone] Source Comments PLEASE NOTE, if this patient [...] lancetsIndicatio ns:Type 2 diabetes mellitus without complication ([facility]) Freestyle lancets. 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 ANNMARIE (obstructive sleep apnea) 05/29/2015 Knee pain, bilateral 03/17/2015 Overview (06/09/2015): 03/18/15- normal xray at [facility]. Bilateral low back pain without sciatica 016 Overview (06/09/2015): Xray lumbar spine- small degenerative osteophyte Arising from superior endplate of L4. At [facility] on 03/18/15 Obese 10/27/2014 SOB (shortness of [...] Administration Dates Next Due Hep B, Adult/Adol ([id number]/RECOMBIVAX-ADULT) 06/05/2015,12/10/2014,10/27/2014 MMR (MMR II/Priorix) 06/05/2015,09/24/2014 TDAP 09/24/2014 Td (adult), 5 Lf tetanus tox oid (Tenivac), preservative free 10/27/2014 Social History Tobacco Use [...] 81 12/09/2015 1:24 PM EDT Temperature 36.8 C (98.3 F) 12/09/2015 1:24 PM EDT Respiratory Rate 18 12/09/2015 1:24 PM EDT Oxygen Saturation 98% 08/28/2015 9:15 AM EDT Inhaled Oxygen Concentration - - Weight 105.2 kg (232 lb) 12/09/2015 1:24 PM EDT Height 154.9 cm (5' 1 ) 11/20/2015 9:14 AM EDT Body Mass Index 43.84 11/20/2015 9:14 AM EDT Plan of Treatment Not on file Insurance [place] MEDICAID Care Teams Livestock Producer Relationship Specialty Start Date End Date Stu Clark NP [address] [place] [id number] PCP - General 01/18/18
== END 2024-09-18 09:05 | disposition home or self-care (01) ==
LOC: HO.HUSH 08:30
PROVIDERS: Visit Provider Nurse Practitioner Family
DX: R31.29 Other microscopic hematuria (principal); R10.30 Lower abdominal pain, unspecified; Z13.9 Encounter for screening, unspecified
CPT/HCPCS: 99213

== ENCOUNTER 2025-03-07 13:52 | Emergency (ER) | payer OTHER, SELFPAY ==
--- NOTE | ~2025-03-07 | XR_ITS ---
EXAMINATION: XR KNEE 4 OR MORE VIEWS RIGHT HISTORY: R knee pain COMPARISON: There are no prior studies available for comparison. FINDINGS: Four views of the right knee are submitted. Osseous mineralization is normal. There is no fracture or dislocation. There is mild degenerative change of the medial compartment with osteophyte formation. No significant joint space narrowing. The soft tissues are unremarkable. There is no joint effusion. XR/XR knee RT 4V IMPRESSION: Mild degenerative change of the medial compartment. Electronically signed by: Osmani Wilson MD 03/07/2025 02:46 PM EST
--- NOTE | ~2025-03-07 | US_ITS ---
EXAMINATION: US TRIPLEX LOWER EXTREMITY, RIGHT CLINICAL INFORMATION: Right leg swelling and pain COMPARISON: None available. TECHNIQUE: Color-flow triplex imaging with spectral analysis and compression Doppler were performed on the right lower extremity. FINDINGS: Respiratory variation, normal compression and augmented flow are noted throughout the right lower extremity. The visualized common femoral vein, superficial femoral vein, profunda femoral vein, popliteal vein and midcalf peroneal and posterior tibial venous segments show no evidence of deep venous thrombosis. There is no Castañeda's cyst. US/US venous duplex LE RT IMPRESSION: No evidence of deep venous thrombosis involving the right lower extremity. Electronically signed by: Quirino Dumont MD 03/07/2025 03:15 PM EST
[2025-03-07 14:10] VITALS: BP 131/62; PULSE 87; RESP 20; TEMP 36.5; O2SAT 98; BMI 45.0
--- NOTE | 2025-03-07 14:11 | ED_ITS ---
HPI - Extremity Injury (Lower) General Chief Complaint: Extremity Injury, Lower Stated Complaint: R Foot Pain Time Seen by Provider: 03/07/25 19:17 Source: patient Mode of arrival: ambulatory Limitations: no limitations History of Present Illness ED Provider: Dr. Fonseca HPI Narrative: 49-year-old female presented hospital today for right knee pain for past 3 weeks. She attempted to call her primary care doctor office unable to reach them yesterday. She states she has been taking some pain killers for a however it is not helping her. Pain on movement in flexing of the right knee. No fever. No traumatic injuries. Related Data Home Medications ?Medication ?Instructions ?Recorded ?Confirmed atorvastatin 10 mg tablet 10 mg PO DAILY 05/06/2412/05 insulin glargine 100 unit/mL (3 unit subcut 05/06/24 0 09/18/24 mL) subcutaneous pen (Lantus Solostar U-100 Insulin) metformin 500 mg tablet,extended 1,000 mg PO BID 05/0609/18/24 release 24 hr trazodone 100 mg tablet 100 mg PO BEDTIME 05/06/24 0 09/18/24 clotrimazole 1 % topical cream appl topical 09/18/24 0 09/18/24 diclofenac potassium 50 mg tablet 50 mg PO BID PRN khloe n 09/18/24 09/18/24 dulaglutide 4.5 mg/0.5 mL mg subcut 09/18/24 09/18/24 subcutaneous pen injector (Trulicity) lisinopril 20 mg tablet 20 mg PO DAILY 09/18/2412/05 Previous Rx's ?Medication ?Instructions ?Recorded ibuprofen 600 mg tablet 600 mg PO Q8H PRN fever or p ain 03/16/24 #20 tabs acetaminophen 500 mg tablet 1,000 mg (2 x 500 mg) PO Q 8H 10 03/07/25 days #60 tabs ibuprofen 400 mg tablet 400 mg PO Q8H PRN pain #60 t abs 03/07/25 lidocaine 4 % topical patch 1 patch topical DAILY PRN pain #15 03/07/25 ea prednisone 50 mg tablet 50 mg PO DAILY 7 days #7 tab s 03/07/25 Allergies Allergy/AdvReac Type Severity Reaction Status Date / Time No Known Allergies Allergy Verified 03/07/25 14:16 Review of Systems Review of Systems: Pertinent review of systems as mentioned in HPI. All other system otherwise negative. [facility] Past Medical History [facility] Narrative: Medical history as mentioned in HPI Social History Social History Smoked in Last 30 Days: No Use of substances other than those prescribed or required for medical reasons: No Advance Directives: No Advance Directives Information Provided: No Do you have a plan to hurt others: No Plan Physical Exam Exam: Exam: General: Pleasant, no distress, interacting appropriately Head: Normacephalic, atraumatic ENT: oral mucosa moist, neck supple, no tracheal deviation Extremities: Right knee pain on flexion, no sign of joint effusion or erythema on exam. CMS intact of the right leg Neurological: Awake and alert, no facial droop noted Skin: Warm and dry Psychiatric: Appropriate mood and thoughts Vital Signs: Vital Signs: Last Vital Signs Temp 97.7 F 03/07/25 20:15 Pulse 87 03/07/25 20:15 Resp 20 03/07/25 20:15 BP 131/62 03/07/25 20:15 Pulse Ox 98 03/07/25 20:15 O2 Del Method Room Air 03/07/25 20:15 BMI result Body Mass Index 45.0 Course Course Course Narrative: This is a Rapid Medical Exam performed in triage by Deirdre Carranza PA-C. Full HPI, ROS and PE to be performed by primary ED provider. 49 yo F Tajik speaking presenting to the ED c/o R leg pain from the knee to foot x 15 days but worsening over the past few days - unable to sleep from pain. denies injury or fall. PE: Right knee with mild reproducible tenderness. No deformity. RLE with mild swelling. Plan: X-ray, ultrasound Medical Decision Making Medical Decision Making [facility] Narrative: 49-year-old female presented hospital today for right knee pain of 3 weeks'. We will plan to give patient some dose of Tylenol and naproxen here. Dose of prednisone will be given to the patient. We will start patient on a burst course of prednisone for her right knee pain. I suspect this is arthritis in nature. Ultrasound did not show any signs of blood clots. No signs of fracture of the right knee. Patient will be discharged. Referral to physiatry will be provided the patient. Differential Diagnosis Differential Diagnoses: The differential diagnosis associated with the pre sentation includes DVT, knee arthritis Independent Interpretation I performed an independent interpretation of an: Plain X-Ray and Ultrasound Radiology Impression Discussion of test interpretation with radiology: I have reviewed the radiologist's reading. Discharge Plan Discharge Clinical Impression: Arthritis of knee Patient Disposition: Home, Self-Care Additional Instructions: No signs of blood clot in leg on ultrasound, no fracture of the bone. I suspect this is arthritis. Follow up with your primary care doctor. I will give a referral to the physiatry team to help. Prescriptions: New prednisone 50 mg tablet 50 mg PO DAILY 7 Days Qty: 7 0RF lidocaine 4 % adhesive patch,medicated 1 patch topical DAILY PRN (Reason: pain) Qty: 15 0RF acetaminophen 500 mg tablet 1,000 mg PO Q8H 10 Days Qty: 60 0RF ibuprofen 400 mg tablet 400 mg PO Q8H PRN (Reason: pain) Qty: 60 0RF No Action insulin glargine [Lantus Solostar U-100 Insulin] 100 unit/mL (3 mL) insulin pen subcut metformin 500 mg tablet extended release 24 hr 1,000 mg PO BID trazodone 100 mg tablet 100 mg PO BEDTIME atorvastatin 10 mg tablet 10 mg PO DAILY ibuprofen 600 mg tablet 600 mg PO Q8H PRN (Reason: fever or pain) Qty: 20 0RF lisinopril 20 mg tablet 20 mg PO DAILY diclofenac potassium 50 mg tablet 50 mg PO BID PRN (Reason: pain) clotrimazole 1 % cream topical Trulicity 4.5 mg/0.5 mL pen injector subcut Referrals: [facility] Physiatry [Provider Group, Physiatry] Print Language: Tajik
--- OUTSIDE RECORDS SUMMARY | 2025-03-07 19:04 | XMS_ITS | Clinical Summary ---
Author Organization [facility] Address [address] [place] [address] Phone Care Team Providers Care Bereavement Program Coordinator Name Role Phone Physician, Pcp Unknown Primary Care Provider Araseli vailable Allergies Active Allergy Reactions Criticality Noted Date Comments Empagliflozin Other 10/09/2024 Liraglutide Nausea And Vomiting 10/12/2021 Medications No known medications Immunizations Immunization Administration Dates Next Due Pfizer SARS-CoV-2 COVID-19, mRNA, LNP-S, preservative free 03/27/2021,07/30/2020,07/08/2020 Medical History Medical History Date Comments Hypertension Diabetes mellitus ([facility] V24, [facility] V28) Social History Tobacco Use Types Packs/Day Years Used Date Smoking Tobacco: Never Smokeless Tobacco: Never Tobacco Cessation:Counseling Given: Not Answered Alcohol Use Standard Drinks/Week Comments Not Currently 0 (1 standard drink = 0.6 oz pur e alcohol) Comments Unknown Sex and Gender Information Value Date Recorded Sex Assigned at Not on file Legal Sex Female 11:03 AM EDT Gender Identity Not on file Sexual Orientation Not on file Last Filed Vital Signs Vital Sign Reading Time Taken Comments Blood Pressure 107/63 10/09/2024 11:35 PM EDT Pulse 89 10/09/2024 11:35 PM EDT Temperature 36.6 C (97.9 F) 10/09/2024 11:35 PM EDT Respiratory Rate 22 10/09/2024 11:35 PM EDT Oxygen Saturation 100% 10/09/2024 11:35 PM EDT Inhaled Oxygen Concentration - - Weight - - Height - - Body Mass Index - - Plan of Treatment Health Maintenance Due Date Last Done Comments Colorectal Cancer Screening: Colonoscopy 1973 Diabetes: Annual Foot Exam 10/25/1983 Diabetes: Annual Retina Eye Exam 10/25/1983 Cervical Cancer Screening: Pap Smear 1994 Hepatitis A Vaccines (2 of 2 - Risk 2-dose series) 04/29/2015 10/27/2014 Pneumococcal Vaccine: 50+ Years (2 of 2 - PCV) 04/14/2017 04/14/2016 Diabetes: Annual GFR (Glomerular Filtration Rate) 11/01/2022 11/01/2021 RSV Immunization Adult Patients (1 - Risk 50-74 years 1-dose series) 10/25/2023 Zoster Vaccines (1 of 2) 10/25/2023 09/24/2014 Breast Cancer Screening 10/30/2023 10/29/2021 HIV Screening 11/08/2023 Social Influencers of Health Screening 11/08/2023 Depression Screening 03/13/2024 Diabetes: Annual Urine Albumin-Creatinine Ratio (uACR) 10/10/2024 01/20/2021, 01/20/2021 Diabetes: Blood Sugar Control Test (HGBA1C) 10/10/2024 10/12/2021 DTaP,Tdap,and Td Vaccines (4 - Td or Tdap) 10/27/2024 10/27/2014, 10/27/2014, 09/24/2014 COVID-19 Vaccine ( - season) 2024 03/27/2021, 07/30/2020, 07/08/2020 Influenza Vaccine (#1) 2024 , 11/29/2019, 01/11/2019, Additional history exists Cholesterol Screening (Lipid Panel) 10/14/2025 10/14/2020 Varicella Vaccines Aged Out 09/24/2014 No longer eligible based on patient's age to complete this topic Hepatitis B Vaccines Completed 06/05/2015, 12/10/2014, 10/27/2014 MMR Vaccines Aged Out 06/05/2015, 09/24/2014 No lo nger eligible based on patient's age to complete this topic Hepatitis C Screening Completed 12/27/2017 HIB Vaccines Aged Out No longer eligi ble based on patient's age to complete this topic HPV Vaccines Aged Out No longer eligi ble based on patient's age to complete this topic IPV Vaccines Aged Out No longer eligi ble based on patient's age to complete this topic Meningococcal ACWY Vaccine Aged Out N o longer eligible based on patient's age to complete this topic Meningococcal B Vaccine Aged Out No l onger eligible based on patient's age to complete this topic RSV Immunization Patients Under 20 months Aged Out No longer eligible based on patient's age to complete this topic Insurance [employer] [place] MEDICA[employer]VANT[employer] Care Teams Bereavement Program Coordinator Relationship Specialty Start Date End Date Physician, Pcp Unknown PCP - General 10/10/24
--- OUTSIDE RECORDS SUMMARY | 2025-03-07 19:04 | XMS_ITS ---
Author Name [facility] Organization Unknown Care Team Organization Name Specialty Phone Email Start Date End Da olivia [facility] CINTHYA ESPINOSA Primary Care 05/18/2022 10/30/19 24
[2025-03-07 20:15] VITALS: BP 131/62; PULSE 87; RESP 20; TEMP 36.5; O2SAT 98
[2025-03-07] MEDS: Lidocaine 4 % Patch ADH..PATCH 1 PATCH TRANSDERMA (20:44)
[2025-03-07 20:59] VITALS: BP 131/62; PULSE 87; RESP 20; TEMP 36.5; O2SAT 98
== END 2025-03-07 21:00 | disposition home or self-care (01) ==
PROVIDERS: Emergency Provider Student in an Organized Health Care Education/Training Program
DX: M13.861 Other specified arthritis, right knee (principal)
CPT/HCPCS: 73564; 93971; 99284

== ENCOUNTER → 2025-03-07 14:14 | Outpatient (BNV) | payer OTHER, SELFPAY | PROVIDERS: Visit Provider Radiology Diagnostic Radiology | DX: R22.41 Localized swelling, mass and lump, right lower limb (principal); M79.661 Pain in right lower leg; M17.11 Unilateral primary osteoarthritis, right knee | CPT/HCPCS: 73564; 93971 ==